=== PATIENT | female | born 1980 | race Two or more races ===

== ENCOUNTER 2020-12-07 14:52 | Outpatient (REF) | payer OTHER, SELFPAY ==
--- NOTE | ~2020-12-07 | US_ITS ---
EXAMINATION: US ABDOMEN LIMITED CLINICAL INFORMATION: Painful lumps in abdomen following liposuction, evaluate for fluid/necrosis. COMPARISON: Ultrasound abdomen complete dated 07/23/2017. CT abdomen and pelvis without contrast dated 01/28/2017. TECHNIQUE: Real-time imaging of the left lower quadrant. FINDINGS: Limited imaging through the abdominal wall reveals no visible mass or fluid collection. There are several hypoechoic areas through the left upper quadrant which correspond to the palpable lesions, likely scar or old hematoma/seroma. US/US abdomen limited IMPRESSION: Several subtle hypoechoic areas seen through the left lower quadrant and are palpable most likely are scar or an old seroma.
== END 2020-12-07 14:53 | disposition home or self-care (01) ==
LOC: HO.US 14:52
PROVIDERS: PCP Internal Medicine; Visit Provider Internal Medicine
DX: L76.82 Other postprocedural complications of skin and subcutaneous tissue (principal); R71.0 Precipitous drop in hematocrit
CPT/HCPCS: 76705

== ENCOUNTER 2022-04-10 15:36 | Outpatient (REF) | payer SELFPAY ==
--- NOTE | ~2022-04-10 | XR_ITS ---
EXAMINATION: XR WRIST, RIGHT CLINICAL INFORMATION: Pain in the right wrist COMPARISON: None TECHNIQUE: PA, lateral, and oblique views of the right wrist. FINDINGS: The bones and soft tissues are normal. No fracture. Alignment is anatomic with normal joint spaces. No erosions or abnormal soft tissue calcifications. XR/XR wrist RT min 3V IMPRESSION: Normal right wrist.
== END 2022-04-10 15:37 | disposition home or self-care (01) ==
LOC: HO.XRAY 15:36
PROVIDERS: Absent Provider Internal Medicine; PCP Internal Medicine; Visit Provider General Practice
DX: M25.531 Pain in right wrist (principal)
CPT/HCPCS: 73110

== ENCOUNTER 2022-11-23 10:08 | Outpatient (AMB) | payer OTHER, SELFPAY ==
--- NOTE | 2022-11-23 10:10 | A.OFFVIS_ITS ---
Intake Vital Signs 11/23/22 10:21 Weight 186 lb BP 138/78 Blood Pressure Location Rt brachial Position Sitting Pulse 79 Intake Visit Reasons: cellulitis and abscess thigh Intake Note: This patient presents for an assessment for cellulitis and abscess of thigh. Patient c/o; Onset 20 years, intermittent, abx trigger symptoms. Technical Service Specialist Required: No Accompanied by: Self / Same As Patient Allergies No Known Allergies Allergy (Unverified 11/23/22 10:11) Medication List - Last Reconciled 11/23/22 by Viktor Raymond MD cholecalciferol (vitamin D3) (Vitamin D3) 50 mcg PO DAILY HPI cellulitis and abscess thigh HPI Details 42-year-old female referred for a recurrent swelling on the left medial thigh. She says that she has had this for many years. She said this area would become swollen and tender on and off. She says that this would spontaneously resolve but would keep recurring. She denies any history of on insect bite or trauma to the area. REPLACED BY [facility] Medical History (Updated 11/23/22 @ 10:42 by Viktor Raymond MD) Epidermal cyst Surgical History History of surgery of uterus History of tubal ligation Family History Maternal Grandmother Breast cancer Social History Alcohol intake: never Patient Tobacco Use Status: Never used Tobacco Review of Systems Const Denies chills and Denies fever(s) Card Denies chest pain, Denies dyspnea and Denies dyspnea on exertion Resp Denies cough, Denies dyspnea and Denies dyspnea on exertion GI Denies hematochezia and Denies change in bowel habits Denies hematuria Musc Denies back pain and Denies limited range of motion Neuro Denies focal weakness and Denies convulsions Psych Denies depression and Denies mood swings Physical Exam Vital Signs: Last Vital Signs Pulse 79 11/23/22 10:21 BP 138/78 11/23/22 10:21 Const General: comfortable and no acute distress Orientation/consciousness: patient oriented x3 Neck Neck: Yes no lymphadenopathy Resp Auscultation: clear to auscultation bilaterally Cardio Rhythm: regular rhythm GI Palpation (GI): Soft to palpation, nontender and no guarding Neuro General: patient oriented x3 Extrem Other: Left medial thigh with cystic induration, about 3 x 2 cm. This is nonfluctuant, this is dry without any drainage Assessment & Plan Assessment & Plan (1) Epidermal cyst: Code(s): L72.0 - Epidermal cyst Plan: This appears to be an epidermal cyst on the left medial thigh. She has had recurrent swelling and pain. She wants this excised. I explained the technique of excision under local anesthesia. I reviewed the risks including but not limited to bleeding, infections and poor healing, as well as the benefits and alternatives. She understands and wants to proceed. This will be done in the office under local anesthesia on her next visit. She understands what to expect postoperatively. Coding Level of Care Code New Pt Level 3 (70497) Diagnoses Epidermal cyst L72.0
[2022-11-23 10:21] VITALS: BP 138/78; PULSE 79
== END 2022-11-23 10:43 | disposition home or self-care (01) ==
PROVIDERS: PCP Internal Medicine; Visit Provider Surgery
DX: L72.0 Epidermal cyst (principal)
CPT/HCPCS: 99203

== ENCOUNTER → 2022-11-23 10:08 | Outpatient (BNVA) | payer BC, SELFPAY | PROVIDERS: PCP Internal Medicine; Visit Provider Surgery ==

== ENCOUNTER 2022-12-07 14:42 | Outpatient (AMB) | payer OTHER, SELFPAY ==
--- NOTE | 2022-12-07 14:44 | A.OFFVIS_ITS ---
Intake Vital Signs 12/07/22 14:53 BP 126/74 Blood Pressure Location Lt brachial Position Sitting Intake Visit Reasons: Excision of cyst left thigh Gallery Director Required: No Accompanied by: Spouse Allergies No Known Allergies Allergy (Unverified 12/07/22 14:44) HPI Excision of cyst left thigh HPI Details She is here for excision of recurrent area of swelling and pain on the left thigh [facility] Medical History (Updated 11/23/22 @ 10:42 by Viktor Raymond MD) Epidermal cyst Surgical History History of removal of cyst (~12/07/22) History of surgery of uterus History of tubal ligation Family History Maternal Grandmother Breast cancer Social History Alcohol intake: never Patient Tobacco Use Status: Never used Tobacco Office Procedures Excision Details: The area of cystic induration was prepped and draped. Lidocaine 1% was used for local anesthesia. I made an elliptical incision around this induration using a blade 15. And this was carried down sharply through the full-thickness of the skin and part of subcutaneous layer to excise this entire indurated diseased tissue. This entire area measured 5 cm by 2.5 cm. This was sent as specimen. I closed the incision with full-thickness nylon 3-0 interrupted sutures. Dressings were applied and the procedure was completed She tolerated procedure well. There were no immediate complications. Estimated blood loss was about 5 cc. She was given wound care instructions. 96559-kxzag/arms/legs 2.1-3cm 08028-mfrmj/arms/legs >4cm Procedure code (CPT) selection complete Assessment & Plan Assessment & Plan (1) Epidermal cyst: Code(s): L72.0 - Epidermal cyst Plan: Area of induration excised completely. She tolerated procedure well. She was given wound care instructions. She will see in the office in about 2 weeks for removal of sutures. Coding Level of Care Code Procedure Only Diagnoses Epidermal cyst L72.0 CPT Codes Trunk/Arms/Legs - CPT: 87047-dceek/arms/legs 2.1-3cm ([id number]) Trunk/Arms/Legs - CPT: 63673-reckb/arms/legs >4cm ([id number])
[2022-12-07 14:53] VITALS: BP 126/74
== END 2022-12-07 15:27 | disposition home or self-care (01) ==
PROVIDERS: PCP Internal Medicine; Visit Provider Surgery
DX: L72.0 Epidermal cyst (principal)
CPT/HCPCS: 11406

== ENCOUNTER 2022-12-07 14:42 | Outpatient (REF) | payer OTHER, SELFPAY | END 2022-12-07 14:43 | disposition home or self-care (01) | LOC: HO.LNP 14:42 | PROVIDERS: PCP Internal Medicine; Visit Provider Surgery | DX: L72.0 Epidermal cyst (principal) | CPT/HCPCS: 11406; 88304; 88305; 88312 ==

== ENCOUNTER 2022-12-18 15:39 | Outpatient (AMB) | payer BC, SELFPAY ==
--- NOTE | 2022-12-18 15:40 | A.OFFVIS_ITS ---
Intake Intake Visit Reasons: s/p excision of cyst left thigh Intake Note: This patient presents for a post-op assessment status post excision of cyst of the left thigh. Patient denies complaints at this time. Pressure Test Operator Required: Yes Pressure Test Operator Language: [place] Accompanied by: Self / Same As Patient Allergies No Known Allergies Allergy (Unverified 12/18/22 15:41) HPI s/p excision of cyst left thigh HPI Details She had undergone excision of what appeared to be a cyst from her left medial thigh last 12/07/2022. She tolerated procedure well. She denies significant complaints. ON LICENSE OF [facility] Medical History Epidermal cyst Surgical History History of removal of cyst (~12/07/22) History of surgery of uterus History of tubal ligation Family History Maternal Grandmother Breast cancer Social History Alcohol intake: never Patient Tobacco Use Status: Never used Tobacco Review of Systems Const Denies chills and Denies fever(s) Card Denies chest pain, Denies dyspnea and Denies dyspnea on exertion Resp Denies cough, Denies dyspnea and Denies dyspnea on exertion GI Denies hematochezia and Denies change in bowel habits Denies hematuria Musc Denies back pain and Denies limited range of motion Neuro Denies focal weakness and Denies convulsions Psych Denies depression and Denies mood swings Physical Exam Const General: comfortable and no acute distress Resp Effort & Inspection: normal respiratory effort Extrem Other: Excision site on the left medial thigh is well healed, not infected, sutures intact Assessment & Plan Assessment & Plan (1) Epidermal cyst: Code(s): L72.0 - Epidermal cyst Plan: Status post excision. Her path report shows benign skin with acanthosis, mild spongiosis and perivascular chronic dermal inflammation. I removed all her sutures. The wound edges remained well apposed. I assured her about the benign nature of the pathology. She can follow up on a p.r.n. basis. Coding Level of Care Code Global (37967) Diagnoses Epidermal cyst L72.0
== END 2022-12-18 16:07 | disposition home or self-care (01) ==
PROVIDERS: PCP Internal Medicine; Visit Provider Surgery
DX: L72.0 Epidermal cyst (principal)
CPT/HCPCS: 99024

== ENCOUNTER → 2022-12-18 15:39 | Outpatient (BNVA) | payer BC, SELFPAY | PROVIDERS: PCP Internal Medicine; Visit Provider Surgery ==

== ENCOUNTER 2023-01-23 18:06 | Outpatient (REF) | payer OTHER, SELFPAY ==
[2023-01-24 05:55] LABS: CT PCR NOT DETECTED (Not Detect.); NG PCR NOT DETECTED (Not Detect.)
[2023-01-24 15:13] LABS: BV Int Neg Control Negative (Negative); BV Int Pos Control Positive (Positive)
== END 2023-01-23 18:07 | disposition home or self-care (01) ==
LOC: HO.HHCLNP 18:06
PROVIDERS: Visit Provider Student in an Organized Health Care Education/Training Program
DX: N89.8 Other specified noninflammatory disorders of vagina (principal); Z20.2 Contact with and (suspected) exposure to infections with a predominantly sexual mode of transmission
CPT/HCPCS: 0353U; 87480; 87510; 87660

== ENCOUNTER 2023-05-16 11:48 | Outpatient (REF) | payer OTHER, SELFPAY | END 2023-05-16 11:49 | disposition home or self-care (01) | LOC: HO.HHCL 11:48 | PROVIDERS: Visit Provider Family Medicine | DX: R10.2 Pelvic and perineal pain (principal) | CPT/HCPCS: 36415; 80048; 81001; 84702; 85025; 87491; 87591 ==

== ENCOUNTER 2023-05-24 | Outpatient (REF) | payer OTHER, SELFPAY ==
[2023-05-25 11:47] LABS: BV Int Neg Control Negative (Negative); BV Int Pos Control Positive (Positive)
[2023-05-29 04:44] LABS: HPV mRNA E6/E7 rflx Not Detected (Not Detected)
== END 2023-05-24 00:01 ==
LOC: HO.HHCLNP
PROVIDERS: Visit Provider Advanced Practice Midwife
DX: Z12.4 Encounter for screening for malignant neoplasm of cervix (principal); Z11.51 Encounter for screening for human papillomavirus (HPV); N89.8 Other specified noninflammatory disorders of vagina
CPT/HCPCS: 87480; 87510; 87624; 87660; 88142

== ENCOUNTER 2023-05-28 12:55 | Outpatient (REF) | payer OTHER, SELFPAY ==
--- NOTE | ~2023-05-28 | MM_ITS ---
EXAMINATION: MM SCREENING DIGITAL BREAST TOMOSYNTHESIS, BILATERAL CLINICAL INFORMATION: Screening. Asymptomatic. COMPARISON: Mammography: This study is compared with prior exams dating back to this is a baseline mammogram. TECHNIQUE: Digital breast tomosynthesis is performed in both the craniocaudal and mediolateral oblique views along with computer-aided detection (CAD). Synthesized 2D images are generated from the tomosynthesis. FINDINGS: The breasts are heterogeneously dense, which may obscure small masses (ACR BI-RADS breast composition Category c). There are no significant masses, abnormal calcifications, or other abnormalities. MM/MM tomosynthesis screening BI IMPRESSION: No mammographic evidence of malignancy. ASSESSMENT: BI-RADS BI-RADS 1 - Negative RECOMMENDATION: Routine annual mammography screening. 1 year F/U This examination should not preclude the clinical evaluation of a suspicious palpable abnormality. This patient's information was entered into a reminder system with a target due date for their next mammogram.
== END 2023-05-28 12:56 | disposition home or self-care (01) ==
LOC: HO.MAMMO 12:55
PROVIDERS: PCP Internal Medicine; Visit Provider Advanced Practice Midwife
DX: Z12.31 Encounter for screening mammogram for malignant neoplasm of breast (principal)
CPT/HCPCS: 77063; 77067

== ENCOUNTER → 2023-05-28 13:00 | Outpatient (BNV) | payer OTHER, SELFPAY | PROVIDERS: PCP Internal Medicine; Visit Provider Radiology Diagnostic Radiology | DX: Z12.31 Encounter for screening mammogram for malignant neoplasm of breast (principal) | CPT/HCPCS: 77063; 77067 ==

== ENCOUNTER 2023-06-07 13:53 | Outpatient (REF) | payer OTHER, SELFPAY ==
--- NOTE | ~2023-06-07 | US_ITS ---
EXAMINATION: US PELVIS CLINICAL INFORMATION: Pelvic pain. COMPARISON: Pelvic ultrasound dated 10/11/2019. TECHNIQUE: Ultrasound of the pelvis is performed using both transabdominal and transvaginal transducers along with Doppler. Transvaginal imaging is performed due to inadequate visualization transabdominally. FINDINGS: The uterus is of normal size and echogenicity measuring 8.8 x 5.2 x 6.2 cm. The uterus is anteverted. A regular homogeneous endometrium is identified measuring 0.6 cm. FIBROIDS: There is 1 fibroid seen. 1. Location: Left fundus. Size: 5.3 x 5.6 x 5.3 cm. Prior: 3.2 x 2.2 x 3.0 Fibroid characteristics: Heterogeneously hypoechoic. Both ovaries are of normal size and echogenicity. The right ovary measures 4.8 x 2.9 x 2.3 cm, for a volume of 16.8 mL. The right ovary contains a 2.1 cm benign, simple dominant follicle, for which no imaging follow-up is recommended. The left ovary measures 3.6 x 2.3 x 1.8 cm, for a volume of 7.8 mL. The left ovary contains a 1.6 cm benign, simple dominant follicle, for which no imaging follow-up is recommended. There is a small amount of free fluid in the cul-de-sac. A left hydrosalpinx is suspected. US/US pelvic and transvaginal IMPRESSION: 1. An increased left fundal fibroid is seen. 2. A left hydrosalpinx is suspected. This could be more fully evaluated with pelvic MRI, if clinically indicated. 3. There is a small amount nonspecific free fluid in the cul-de-sac.
== END 2023-06-07 13:54 | disposition home or self-care (01) ==
LOC: HO.US 13:53
PROVIDERS: PCP Internal Medicine; Visit Provider Family Medicine
DX: R10.2 Pelvic and perineal pain (principal)
CPT/HCPCS: 76830; 76856

== ENCOUNTER 2023-07-17 11:48 | Outpatient (AMB) | payer OTHER, SELFPAY ==
--- NOTE | 2023-07-17 11:52 | A.OFFVIS_ITS ---
Intake Vital Signs 07/17/23 11:55 Height 5 ft 3 in Weight 183 lb BMI 32.4 BP 126/84 Intake Visit Reasons: uterine leiomyoma/PCP referral/DO NOT RS Sales And Leasing Consultant Required: No Information Interpreted: non-clinical & clinical Splitter Head: Splitter Head Present (Yareli ABDI) Accompanied by: Self / Same As Patient Allergies No Known Allergies Allergy (Unverified 07/17/23 11:57) Is last menstrual period known: Yes Last menstrual period: 07/17/23 HPI HPI Comments History of Present Illness Details The patient is referred from PCP regarding uterine myomas. The patient had an endometrial ablation few years ago and since then it has been having dysmenorrhea with light menstrual cycles, no other associated symptoms no pelvic pain in between her menstrual cycle. The following workup was done in 06/06: H&H 14.2/41.9 Co testing negative Mammogram BI-RADS 1 Pelvic ultrasound showed the following: The uterus is of normal size and echogenicity measuring 8.8 x 5.2 x 6.2 cm. The uterus is anteverted. A regular homogeneous endometrium is identified measuring 0.6 cm. FIBROIDS: There is 1 fibroid seen. 1. Location: Left fundus. Size: 5.3 x 5.6 x 5.3 cm. Prior: 3.2 x 2.2 x 3.0 Fibroid characteristics: Heterogeneously hypoechoic. Both ovaries are of normal size and echogenicity. The right ovary measures 4.8 x 2.9 x 2.3 cm, for a volume of 16.8 mL. The right ovary contains a 2.1 cm benign, simple dominant follicle, for which no imaging follow-up is recommended. The left ovary measures 3.6 x 2.3 x 1.8 cm, for a volume of 7.8 mL. The left ovary contains a 1.6 cm benign, simple dominant follicle, for which no imaging follow-up is recommended. There is a small amount of free fluid in the cul-de-sac. A left hydrosalpinx is suspected PFSH Medical History Epidermal cyst Surgical History History of removal of cyst (~12/07/22) History of surgery of uterus History of tubal ligation Family History Maternal Grandmother Breast cancer Social History Household Members: Spouse and Children Housing: House Alcohol intake: never Patient Tobacco Use Status: Never used Tobacco Current occupational status: employed Current occupation: Therapist Sexual orientation: Straight/Heterosexual Gender identity: Female Female Reproductive History Menstrual Age of Menarche: 15 Duration of menses: 3-5 days Date of last menstrual period: 07/17/23 control method: permanent sterilization Total pregnancies: 2 Full term: 2 Number of Living Children: 2 Date of last pap smear: 05/25/23 Date of Mammogram: 05/28/23 Review of Systems Const All systems reviewed & are unremarkable except as noted in HPI and below Physical Exam Vital Signs: BMI result Body Mass Index 32.4 General: Yes no CVA tenderness External Female Exam: normal external appearance and normal appearance of the urethra Speculum Exam - Vagina: normal appearance of the vagina, normal palpation, no lesions and no masses Speculum Exam - Cervix: normal appearance of the cervix, normal palpation, no lesions, no masses and nontender Bimanual exam- vagina & uterus: normal bimanual exam, normal palpation, normal palpation, uterine shape normal, No Cervical tenderness present, non-tender and enlarged Bimanual Exam- Adnexa, other: normal adnexae Back/Spine/Pelvis Back: no CVA tenderness Assessment & Plan Assessment & Plan (1) Uterine myoma: Code(s): D25.9 - Leiomyoma of uterus, unspecified Plan: Discussed with the patient the findings on pelvic ultrasound & the risk of myosarcoma; discussed with the patient the options of treatment including expectant management versus hysterectomy; the pros and cons, risks benefits of each approach were discussed with the patient including the fact that in cases of myosarcoma, surgical treatment can lead to early diagnosis and positively affects the prognosis; after further discussion, the patient decided to proceed with expectant management. Will repeat pelvic ultrasound in 6 months. Instructions given to patient to call in case any of the following occurs: pressure symptoms, abnormal uterine bleeding, pelvic pain; and to schedule a six-month follow-up appointment . All questions answered, the patient verbalized understanding and agreed with the plan . 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 Instructions given the patient to call in case of fever above 100.4, worsening of her pelvic pain outside her menstrual cycle according other concerns. All questions answered, the patient verbalized understanding Orders: Orders US pelvic and transvaginal 6 Months D25.9 - Leiomyoma of uterus, unspecified Coding Level of Care Code Est Pt Level 3 (63579) Diagnoses Uterine myoma D25.9 Hydrosalpinx N70.11
[2023-07-17 11:55] VITALS: BP 126/84; BMI 32.4
== END 2023-07-17 12:22 | disposition home or self-care (01) ==
LOC: HO.HWS 11:49
PROVIDERS: PCP Internal Medicine; Visit Provider Obstetrics & Gynecology
DX: D25.9 Leiomyoma of uterus, unspecified (principal); N70.11 Chronic salpingitis
CPT/HCPCS: 99213

== ENCOUNTER → 2023-07-17 11:48 | Outpatient (BNVA) | payer OTHER, SELFPAY | PROVIDERS: PCP Internal Medicine; Visit Provider Obstetrics & Gynecology ==

== ENCOUNTER 2024-01-17 13:04 | Outpatient (REF) | payer OTHER, SELFPAY ==
--- NOTE | ~2024-01-17 | US_ITS ---
EXAMINATION: US PELVIS CLINICAL INFORMATION: Uterine fibroids COMPARISON: Pelvis ultrasound June 07, 2023 TECHNIQUE: Ultrasound of the pelvis is performed using both transabdominal and transvaginal transducers along with Doppler. Transvaginal imaging is performed due to inadequate visualization transabdominally. FINDINGS: Uterus: The uterus is anteverted and measures 9.1 x 4.5 x 6.3 cm. Fundal uterine fibroid measuring 6.3 x 5.6 x 4.7 cm, previously 5.3 x 5.6 x 5.3 cm. Adnexa: Both ovaries are visualized. There is normal color flow to the adnexa. There is no ovarian torsion. There is no pelvic ascites or fluid collection. Right ovary measures 4.5 x 2.7 x 3.3 cm. Volume is 21 mL. Dominant follicle noted. Left ovary measures 2.8 x 1.7 x 2.6 cm. Volume is 6.5 mL. Incidental calcifications noted. Cyst noted adjacent to the left adnexa measuring 2.4 x 2.3 x 2.2 cm, almost certainly benign. US/US pelvic and transvaginal IMPRESSION: Fundal uterine fibroid measuring 6.3 x 5.6 x 4.7 cm, previously 5.3 x 5.6 x 5.3 cm. Electronically signed by: Fran Bolton MD 01/24/2024 11:10 AM EDT
== END 2024-01-17 13:05 | disposition home or self-care (01) ==
LOC: HO.US 13:04
PROVIDERS: PCP Internal Medicine; Visit Provider Obstetrics & Gynecology
DX: D25.9 Leiomyoma of uterus, unspecified (principal)
CPT/HCPCS: 76830; 76856

== ENCOUNTER 2024-01-21 12:33 | Outpatient (REF) | payer OTHER, SELFPAY ==
[2024-01-22 15:22] LABS: Bacterial Vaginosis PCR NEGATIVE (Negative); Candida Group PCR DETECTED (Not Detect); Candida glab krusei PCR NOT DETECTED (Not Detect); Trichomonas vaginalis PCR NOT DETECTED (Not Detect)
== END 2024-01-21 12:34 | disposition home or self-care (01) ==
LOC: HO.HHCLNP 12:33
PROVIDERS: Visit Provider Internal Medicine
DX: N30.00 Acute cystitis without hematuria (principal)
CPT/HCPCS: 0352U; 87086

== ENCOUNTER 2024-01-29 14:00 | Outpatient (AMB) | payer OTHER, SELFPAY ==
--- NOTE | 2024-01-29 14:02 | MHC.OFFVIS ---
Vital Signs 01/29/24 14:07 Height 5 ft 3 in Weight 182 lb 15.739 oz BMI 32.4 Intake Visit Reasons: US follow up Allergies No Known Allergies Allergy (Unverified 07/17/23 11:57) HPI Comments Details: Presenting for ultrasound follow-up regarding uterine myomas. Pelvic ultrasound done recently showed the following: Uterus: The uterus is anteverted and measures 9.1 x 4.5 x 6.3 cm. Fundal uterine fibroid measuring 6.3 x 5.6 x 4.7 cm, previously 5.3 x 5.6 x 5.3 cm. Adnexa: Both ovaries are visualized. There is normal color flow to the adnexa. There is no ovarian torsion. There is no pelvic ascites or fluid collection. Right ovary measures 4.5 x 2.7 x 3.3 cm. Volume is 21 mL. Dominant follicle noted. Left ovary measures 2.8 x 1.7 x 2.6 cm. Volume is 6.5 mL. Incidental calcifications noted. Cyst noted adjacent to the left adnexa measuring 2.4 x 2.3 x 2.2 cm, almost certainly benign. [facility] Medical History Epidermal cyst Surgical History History of removal of cyst (~12/07/22) History of surgery of uterus History of tubal ligation Family History Maternal Grandmother Breast cancer Social History Household Members: Spouse and Children Housing: House Alcohol intake: never Patient Tobacco Use Status: Never used Tobacco Current occupational status: employed Current occupation: Therapist Sexual orientation: Straight/Heterosexual Gender identity: Female Female Reproductive History Menstrual Age of Menarche: 15 Review of Systems Const All systems reviewed & are unremarkable except as noted in HPI and below Reports as per HPI and Reports no additional complaints GI Reports no additional complaints Reports no additional complaints Physical Exam Vital Signs: BMI result Body Mass Index 32.4 Assessment & Plan Assessment & Plan (1) Uterine myoma: Code(s): D25.9 - Leiomyoma of uterus, unspecified Category: Medical Plan: Discussed with the patient the results of the ultrasound and the size of the myomas. Discussed with the patient risk of myosarcoma and symptoms that are caused by myomas including but not limited to pelvic pain, pressure symptoms, abnormal uterine bleeding. In addition discussed with the patient options of treatment for myomas including: Serial ultrasounds periodically to follow-up on the size of the myoma uterine artery embolization or endometrial ablation or surgical treatment including hysterectomy . All pros and cons, risks and benefits of all options were discussed with the patient. The patient understands that delay in surgical treatment in case of myosarcoma can affect her prognosis, after further discussion, the patient decided to proceed with surgical management. Discussed with the patient the different types of hysterectomies including, vaginal, laparoscopic assisted vaginal, robotic assisted laparoscopic,& abdominal with BSO. All pros, cons, r/b of each approach were discussed the patient including evidence that morbidity is less and recovery is shorter with minimally invasive approaches to hysterectomy. Discussed with the patient the lack of availability of the robot DaVinci robot and/or minimally invasive cdl dedicated truck driver specialist at [facility]. Will refer the patient to a tertiary care center at [facility] for minimally invasive hysterectomy. Instructed the patient to call our office back in case a referral appointment is not scheduled, missed or canceled so that we will assist on rescheduling another appointment, the patient verbalized understanding agreed with the plan. This note was generated with a voice recognition program. Some errors may have been overlooked during the review of this note. Sometimes these errors may affect the content or meaning of a given sentence. Coding Level of Care Code Est Pt Level 3 (43898) Diagnoses Uterine myoma D25.9
[2024-01-29 14:07] VITALS: BMI 32.4
== END 2024-01-29 14:27 | disposition home or self-care (01) ==
LOC: HO.HWS 14:00
PROVIDERS: PCP Internal Medicine; Visit Provider Obstetrics & Gynecology
DX: D25.9 Leiomyoma of uterus, unspecified (principal)
CPT/HCPCS: 99213

== ENCOUNTER → 2024-01-29 14:00 | Outpatient (BNVA) | payer OTHER, SELFPAY | PROVIDERS: PCP Internal Medicine; Visit Provider Obstetrics & Gynecology ==

== ENCOUNTER 2024-02-06 18:29 | Outpatient (REF) | payer OTHER, SELFPAY | END 2024-02-06 18:30 | disposition home or self-care (01) | LOC: HO.HHCLNP 18:29 | PROVIDERS: Visit Provider Nurse Practitioner Family | DX: L03.116 Cellulitis of left lower limb (principal) | CPT/HCPCS: 87070; 87205; 87255 ==

== ENCOUNTER → 2024-06-02 13:00 | Outpatient (BNV) | payer OTHER, SELFPAY | PROVIDERS: PCP Internal Medicine; Visit Provider Internal Medicine | DX: Z12.31 Encounter for screening mammogram for malignant neoplasm of breast (principal) | CPT/HCPCS: 77063; 77067 ==

== ENCOUNTER 2024-06-02 13:08 | Outpatient (REF) | payer OTHER, SELFPAY | END 2024-06-02 13:09 | disposition home or self-care (01) | LOC: HO.MAMMO 13:08 | PROVIDERS: PCP Internal Medicine; Visit Provider Internal Medicine | DX: Z12.31 Encounter for screening mammogram for malignant neoplasm of breast (principal) | CPT/HCPCS: 77063; 77067 ==

== ENCOUNTER 2024-08-20 14:40 | Outpatient (REF) | payer OTHER, SELFPAY ==
[2024-08-20 16:34] LABS: Alanine Aminotransferase 15 U/L (0-31); Albumin Level 3.7 g/dL (3.5-5.0); Aspartate Amino Transferase 17 U/L (5-31); Bilirubin Direct 0.2 mg/dL (0.0-0.5); Bilirubin Total 0.9 mg/dL (0.0-1.0); Total Protein 6.4 g/dL (6.5-8.0)
[2024-08-20 16:48] LABS: Alkaline Phosphatase 74 U/L (39-117)
--- OUTSIDE RECORDS SUMMARY | 2024-08-20 16:54 | XMS_ITS | Clinical Summary ---
Author Organization [employer] Address [address] [place] [address] 7t [place] [address] Care Team Providers Care Drum Printer Name Role Phone Cydney Coy MD Primary Care Provide r Allergies No known active allergies Medications hydrocortisone 1 % cream APPLY TO THE AFFECTED AREA(S) EVERY DAY 12/08/19 22 Active lidocaine (Xylocaine) 2 % solution Mix 80 mL of maalox with 80 mL of diphenhydramine and 80 mL of lidocaine 2% cornelius and take 1 mL of mixture by mouth 4 times daily, Swish and spit. Apply sm amt of lidocaine topically to oral ulcers 4x a day prn 100 mL 11/08/19 23 Active Additional Information Patient not taking.Reported on 05/16/2023 diphenhydrAMINE (BENADryl) 12.5 MG/5ML elixir Mix 80 mL of benadryl with 80 mL of maalox and 80 mL of lidocaine 2% solution and take 1 mL of mixture by mouth 4 times daily as needed for pain, Swish and spit 80 mL 11/08/19 23 Active Additional Information Patient not taking.Reported on 05/16/2023 cholecalciferol (Vitamin D-3) 50 MCG (1999 UT) capsuleIndicatio ns:Vitamin D deficiency Take 1 capsule by oral route once daily 30 capsule 11 11/16/19 23 Active Additional Information Patient not taking.Reported on 05/16/2023 diclofenac (Cataflam) 50 MG tabletIndication s:Pelvic pain Take 1 tablet (50 mg) by mouth 3 times daily. 90 tablet 05/16/19 24 Active Additional Information Patient not taking.Reported on 02/06/2024 estradiol (Estrace) 0.1 MG/GM vaginal cream Insert 1 g into the vagina in the morning. 1g vaginally x 14d, then twice weekly thereafter 45 g 2 05/25/19 Active Additional Information Patient not taking.Reported on 02/06/2024 Blood Pressure Monitoring (Blood Pressure Cuff) miscIndications: Primary hypertension 1 each Once daily. 1 each 06/21/19 Active Additional Information Patient not taking.Reported on 02/06/2024 amLODIPine (Norvasc) 10 MG tabletIndication s:Primary hypertension Take 1 tablet (10 mg) by mouth in the morning. 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 Initial goal of 30 min walk 3-5x/week. Increase as tolerated. - low-sodium diet (goal: <2g/day) and heart healthy diet such as DASH to reduce BP and prevent ASCVD. - Home BP monitoring 1-2 x day with goal of <140/90. - Seek immediate medical attention for chest pain, palpitations, SOB, syncope, or sudden changes in mental status. - Do not change or discontinue current prescriptions without first consulting health care provider Elevated blood pressure reading 05/16/2023 Assessment & Plan (05/16/2023 11:51 AM EST): In the setting of pelvic pain, at this moment recommended f/up with PCP Avulsion of toenail 04/29/2018 Eczema 01/25/2018 Cellulitis of lower limb 12/25/2017 Assessment & Plan (03/02/2024 5:38 PM EDT): Reoccuring infection, unclear etiology Culture sent, rx for cellulitis, Return to clinic for worsening or failure to improve Pelvic pain 12/20/2017 Assessment & Plan (05/16/2023 11:51 AM EST): Acute on chronic, ddx pelvic congestion, ovarian cysts, vs other. Will send labs and US, she requested f/up with CNM, scheduled appt and referral placed. Recommended f/up with PCP for chronic issues. Irritable bowel syndrome 11/19/2012 Encounters Date Type Department Care Team Description 08/20/2024 Orders Only GENERIC EXTERNAL DATA DEPARTMENT Provider, Generic External Data 06/02/2024 Orders Only [facility] [address] [place] [phone] Cydney Coy MD 05/30/2024 3:40 PM EST Office Visit [facility] [address] [place] [phone] Rosaura Barakat NP Onychomycosis of great toe (Primary Dx); Elevated blood pressure reading 05/30/2024 Travel 05/30/2024 Telephone [facility] [address] [place] [address] Cydney Coy MD 05/28/2024 Telephone [facility] [address] [place] [phone] Cydney Coy MD Nurse Triage from Last 3 Months Immunizations Name Administration Dates Next Due Hep B, adult 03/02/2010 Influenza, IIV3, injectable 06/21/2011 Influenza, Split (incl. purified surface antigen ) 02/18/2013,01/23/2012 TD (adult), 2 Lf tetanus tox oid, preservative free, adsorbed 06/04/2007 Tdap 12/18/2014 Family History Medical History Relation Name Comments Breast cancer Maternal Cousin Breast cancer Maternal Grandmother Breast cancer Mother's Sister Uterine cancer Sister Relation Name Status Comments Maternal Cousin Maternal Grandmother Mother's Sister Sister Social History Tobacco Use Types Packs/Day Years Used Date Smoking Tobacco: Never Smokeless Tobacco: Never Tobacco Cessation:Counseling Given: Not Answered Alcohol Use Standard Drinks/Week Comments Never 0 (1 standard drink = 0.6 oz pur e alcohol) Depression Answer Date Recorded Patient Health Questionnaire-9 Score 0 11/01/2022 Housing Stability Answer Date Recorded What is your housing situation today? I have ian maloney 03/19/[address] you li ve. Do you have problems with any of the following? None of the above 03/19/2023 Food Insecurity Answer Date Recorded Within the past 12 months, y ou worried that your food would run out before you got money to buy more: Never True 03/19/2023 Within the past 12 months,th e food you bought just didn't last and you didn't have enough money to get more: Never True 10/2022 Transportation Answer Date Recorded In the past 12 months, has l ack of transportation kept you from medical appts, meetings, work or from getting things needed for daily living? No 09/12/2023 Utilities Answer Date Recorded In the past 12 months, has t he electric, gas, oil or water company threatened to shut off services in your home? No 03/19/2023 Depression Answer Date Recorded Patient Health Questionnaire-2 Score 0 11/01/2022 Comments No Sex and Gender Information Value Date Recorded Sex Assigned at Female 03/13/2022 10:19 AM EDT Legal Sex Female 10:19 AM EDT Gender Identity Female 03/13/2022 10:19 AM EDT Sexual Orientation Straight 03/13/2022 10 :19 AM EDT Last Filed Vital Signs Vital Sign Reading Time Taken Comments Blood Pressure 144/89 05/30/2024 3:41 PM EST Pulse 79 05/30/2024 3:41 PM EST Temperature 36.6 ??C (97.9 ??F) 05/30/2024 3:41 PM ES T Respiratory Rate 16 05/30/2024 3:41 PM EST Oxygen Saturation 100% 05/30/2024 3:41 PM EST Inhaled Oxygen Concentration - - Weight 79.8 kg (176 lb) 05/30/2024 3:41 PM EST Height 160 cm (5' 3 ) 02/06/2024 11:28 AM EDT Body Mass Index 31.18 02/06/2024 11:28 AM EDT Plan of Treatment Health Maintenance Due Date Last Done Comments Alcohol/Substance Use Screening 1992 Family Planning (PISQ) 09/17/1995 Hepatitis B Vaccines (2 of 3 - 19+ 3-dose series) 03/30/2010 03/02/2010 Depression Screening 11/02/2023 11/01/2022, 11/01/2022 COVID-19 Vaccine (3 - 2023-2 5 season) 2024 01/21/2021, 12/24/2020 Influenza Vaccine (#1) 2024 3, 01/23/2012, 06/21/2011 SDOH Screening 09/11/2024 09/12/2023 DTaP/Tdap/Td Vaccines (2 - T d or Tdap) 12/18/2024 12/18/2014, 06/04/2007 Tobacco Screening 02/05/2025 02/06/2024 Mammogram 06/02/2025 06/02/2024, 05/28/2023 Lipid Panel 11/08/2027 11/07/2022 Cervical Cancer Screening 05/24/2028 HPV/Cotest 05/24/2028 05/24/2023 Pap Smear 05/24/2028 05/24/2023 Zoster Vaccines (1 of 2) 2030 RSV Patients and Patients Aged 60 years or older (1 - 1-dose 75+ series) 09/17/2055 HIV Screening Completed 11/07/2022, 07/14/2020 Hepatitis C Screening Completed 11/07/2022 HIB Vaccines Aged Out No longer eligi ble based on patient's age to complete this topic HPV Vaccines Aged Out No longer eligi ble based on patient's age to complete this topic Hepatitis A Vaccines Aged Out No long er eligible based on patient's age to complete this topic IPV Vaccines Aged Out No longer eligi ble based on patient's age to complete this topic Meningococcal Vaccine Aged Out No linda stephon eligible based on patient's age to complete this topic Pneumococcal Vaccine: Pediatrics (0 to 5 Years) and At-Risk Patients (6 to 49) Years) Aged Out No longer eligible b ased on patient's age to complete this topic RSV under 20 months Aged Out No longe r eligible based on patient's age to complete this topic Rotavirus Vaccines Aged Out No longer eligible based on patient's age to complete this topic Procedures Procedure Name Priority Date/Time Associated Diagnosis Comments HEPATIC FUNCTION PANEL Routine 2:47 PM EDT BI MAMMOGRAM SCREENING TOMOSYNTHESIS BILATERAL Routine 06/02/2024 1:12 PM EST HPV MRNA E6/E7 REFLEX TO HPV 16, 18/45 Routine 05/24/2023 9:53 AM EST PAP SMEAR Routine 05/24/2023 9:53 AM EST Cervical cancer screening HEPATITIS C AB W/RFL RNA, PCR W/RFL GENOTYPE,LIPA Routine 11/07/2022 12:06 PM EDT Thrush HIV 1/2 ANTIGEN/ANTIBODY, FOURTH GENERATION W/RFL Routine 11/07/2022 12:06 PM EDT Thrush LIPID PANEL, STANDARD Routine 11/07/2022 12:06 PM EDT Thrush from Last 3 Months or Most Recently Relevant to Health Maintenance Results * (ABNORMAL) Hepatic Function Panel (08/20/2024 2:47 PM EDT) Bilirubin, Total 0.9 0.0 - 1.0 mg/dL [facility] Bilirubin, Direct 0.2 0.0 - 0.5 mg/dL [facility] Aspartate Amino Transferase 17 5 - 31 U/L [facility] Alanine Aminotransferase 15 0 - 31 U/L [facility] Total Protein 6.4(L) 6.5 - 8.0 g/dL [facility] Albumin Level 3.7 3.5 - 5.0 g/dL [facility] Alkaline Phosphatase 74 39 - 117 U/L [facility] 08/20/2024 2:47 PM EDT 08/20/2024 2:47 PM EDT us Generic External Data Provider LAB BLOOD ORDERAB LES Final Result [facility] [address] [place] [address] [phone] * BI Mammogram Screening Tomosynthesis Bilateral (06/02/2024 1:12 PM EST) Anatomical Region Laterality Modality Breast Bilateral Mammography 06/02/2024 1:12 PM EST Narrative 06/10/2024 12:06 PM EST ? [facility] ? [address] ?[place] [address] ? Mammography Report ? Signed ? Patient: Nancy Hernandez ?MR#: MM ?? [id number] ? : 1980 ?Acct:[id number] ? Age/Sex: 43 / F ?ADM Date: 06/02/ ? Loc: HO.MAMMO ? Attending Dr: Cydney Yusuf MD ? Ordering Physician: Cydney Coy MD ?Results: ?? 1Negative ? Date of Service: 06/02/ ?Follow Up: 1 Year From Orig ?? inal Mammogram ? Procedure(s): MM tomosynthesis screening BI ?? Accession Number(s): [id number] ? cc: Cydney Coy MD ? EXAMINATION: ?? MM SCREENING DIGITAL BREAST TOMOSYNTHESIS, BILATERAL ? CLINICAL INFORMATION: ? Screening. Asymptomatic. ? COMPARISON: ?? Mammography: Comparison is made with available priors ? TECHNIQUE: ?? Digital breast mammography with tomosynthesis is performed in both the ?? craniocaudal and mediolateral oblique views along with computer-aided ?? detection (CAD). ? FINDINGS: ?? The breasts are heterogeneously dense, which may obscure small masses ?? (ACR BI-RADS breast composition Category c). ? There are no significant masses, abnormal calcifications, or other ?? abnormalities. ? MM/MM tomosynthesis screening BI ?? IMPRESSION: ?? No mammographic evidence of malignancy. ? ASSESSMENT: ? BI-RADS BI-RADS 1 - Negative ? RECOMMENDATION: ?? Routine annual mammography screening. ? 1 year F/U ? This examination should not preclude the clinical evaluation of a ?? suspicious palpable abnormality. ? This patient's information was entered into a reminder system with a ?? target due date for their next mammogram. ? Electronically signed by: ??Claudia Gimenez DO ??06/10/2024 12:03 PM EST ? Dictated By: ?Claudia Gimenez DO ? Signed By: ?<Electronically signed by Claudia Gimenez, DO in OV> ? 06/10/24 1203 ? DD/ 1312 ? TD/TT: 06/02/24 1326 ? Distribution Field Technician: ? Procedure Note Loly, Jesus - 06/10/2024 [facility] [address] [place] [address] Mammography Report Signed Patient: Ronal Hernandez#: [id number] : 1980Acct:[id number] Age/Sex: 43 / FADM Date: 06/02/24 Loc: HO.MAMMO Attending Dr: Cydney Yusuf MD Ordering Physician: Cydney Coy MDResults: 1Negative Date of Service: 06/02/24Follow Up: 1 Year From Orig inal Mammogram Procedure(s): MM tomosynthesis screening BI Accession Number(s): [id number] cc: Cydney Coy MD EXAMINATION: MM SCREENING DIGITAL BREAST TOMOSYNTHESIS, BILATERAL CLINICAL INFORMATION: Screening. Asymptomatic. COMPARISON: Mammography: Comparison is made with available priors TECHNIQUE: Digital breast mammography with tomosynthesis is performed in both the craniocaudal and mediolateral oblique views along with computer-aided detection (CAD). FINDINGS: The breasts are heterogeneously dense, which may obscure small masses (ACR BI-RADS breast composition Category c). There are no significant masses, abnormal calcifications, or other abnormalities. MM/MM tomosynthesis screening BI IMPRESSION: No mammographic evidence of malignancy. ASSESSMENT: BI-RADS BI-RADS 1 - Negative RECOMMENDATION: Routine annual mammography screening. 1 year F/U This examination should not preclude the clinical evaluation of a suspicious palpable abnormality. This patient's information was entered into a reminder system with a target due date for their next mammogram. Electronically signed by: Claudia Gimenez DO 06/10/2024 12:03 PM EST RP Dictated By: Claudia Gimenez DO Signed By: <Electronically signed by Claudia Gimenez DO in OV> 06/10/24 1203 DD/ 1312 TD/TT: 06/02/24 1326 Distribution Field Technician: Cydney Yusuf MD IMG BI PROCEDURES Fin al Result * HPV mRNA E6/E7 w/Reflex to HPV Genotypes 16, 18/45 (05/24/2023 9:53 AM EST) HPV nRNA E6/E7 Not Detected Not Detected [facility] Comment:Methodology: Transcr iption-Mediated AmplificationThis assay detects E6/E7 viral messenger RNA (mRNA) from 14high-risk HPV types (16,18,31,33,35,39,45,51,52,56,58,59,66,68).Cervical sources are required for HPV testing.If a vaginal source from a patient who has had atotal hysterectomy with removal of cervix wassubmitted, please contact the testing laboratoryfor alternative testing options.For additional information, please refer tohttp://education.CareParent/faq/OLC730e3(This link if provided for information/educational purposes only.)THIS TEST WAS PERFORMED AT:[facility] [place] [phone] TSANG MD HPV mRNA E6/E7 TNP [facility] HPV 16 RNA TNP [facility] HPV 18/45 RNA TNP [facility] 05/24/2023 9:53 AM EST 05/25/2023 11:20 AM EST Shirley Kingsley [facility] CYTOLOGY ORDERABLES F inal Result [facility] [address] [place] [phone] * Pap Smear (05/24/2023 9:53 AM EST) Swab Cervix uteri structure / Unknown 05/24/2023 9:53 AM EST 05/25/2023 11:20 AM EST Narrative [facility] - 06/04/2023 11:19 AM EST ----- ------- Name: Nancy Hernandez ? Age/Sex: 42/F ? : 1980 Unit#: [id number] ?? Attend Dr: ?Re05/24/23 ?Status: PRE REF ? Location: HO.LNP ?Disch: ? ----- ------- SPEC : [id number] ?RECD: 05/25/23 ? STATUS: ??SOUT ? REQ NUM: [id number] ? ALEJANDRA: 05/24/23 ? SUBM DR: SHIRLEY KINGSLEY CNM ? ENTERED: ??05/25/23 ?SP TYPE: Pap Smr ?OTHR : ? ORDERED: ??Pap Smear ? Interpretation ?? Satisfactory for evaluation. ?? Negative for intraepithelial lesion or malignancy. ? HPV mRNA E6/E7: ?NOT DETECTED ? This assay detects E6/E7 viral messenger RNA (mRNA) from 14 high-risk HPV types (16, 18, ?? 31, 33, 35, 39, 45, 51, 52, 56, 58, 59, 66, 68) ? HPV testing performed by [facility], [place], [place]. ??See reference laboratory ?? portion of the EMR for entire report. ?Clinical Information LMP: 04/22/2023 Previous PAP test: Unknown date/findings ? Material Received ?? ThinPrep-Cervical ----- ------- Signed (signature on file) Angy Lynn 06/04/23 1119 ? ----- ------- ? END OF REPORT ? us Shirley Octaviano [facility] CYTOLOGY ORDERABLES F inal Result [facility] [address] [place] [address] [phone] * Hepatitis C Antibody with Reflex to HCV RNA,PCR w/Reflex to Genotype, LiPA (11/07/2022 12:06 PM EDT) Pathologist [facility] Hepatitis C Antibody NON-REACT MUNDO NON-REACT MUNDO [facility] Comment: HCV antibody was non-reactive. There is no laboratory evidence of HCV infection. In most cases, no further action is required. However, if recent HCV exposure is suspected, a test for HCV RNA (test code 62979) is suggested. For additional information, please refer to http://education.Sponsify/faq/PNY292 (This link is being provided for informational/ educational purposes only.) 11/07/2022 12:0 6 PM EDT 11/07/2022 12:06 PM EDT Serenity Porsha DO LAB BLOOD ORDERABLES Final R esult Performing Organization Address [facility] Co de Phone Number [address], [facility] [place] [phone] [facility] [address] [place] [phone] * HIV-1/2 Antigen and Antibodies, Fourth Generation, with Reflexes (11/07/2022 12:06 PM EDT) [facility] HIV Antigen/Antibody, 4th Generation NON-REAC TIVE NON-REAC TIVE [facility] Comment: HIV-1 antigen and HIV-1/HIV-2 antibodies were not detected. There is no laboratory evidence of HIV infection. PLEASE NOTE: This information has been disclosed to you from records whose confidentiality may be protected by state law. ??If your state requires such protection, then the state law prohibits you from making any further disclosure of the information without the specific written consent of the person to whom it pertains, or as otherwise permitted by law. A general authorization for the release of medical or other information is NOT sufficient for this purpose. ?? For additional information please refer to http://education.[employer].Plan A Drink/faq/QBS839 (This link is being provided for informational/ educational purposes only.) The performance of this assay has not been clinically validated in patients less than 2 years old. Blood Venous blood specimen / Unknown 11/07/2022 12:06 PM EDT 11/07/2022 12:06 PM EDT Serenity Story DO LAB BLOOD ORDERABLES Final R esult Performing Organization Address City/[facility]/ZIP Co de Phone Number [address], [facility] [place] [address] [facility] [place] [facility] [address] [place] [phone] * (ABNORMAL) Lipid Panel, Standard (11/07/2022 12:06 PM EDT) Cholesterol, Total 138 <200 mg/dL [facility] [place] [facility] HDL Cholesterol 48(L) > OR = 50 mg/dL [facility] [place] [facility] Triglycerides 112 <150 mg/dL [facility] [place] [facility] LDL Cholesterol 70 mg/dL (calc) [facility] [place] [facility] Comment: Reference range: <100 Desirable range <100 mg/dL for primary prevention; ?? <70 mg/dL for patients with CHD or diabetic patients with > or = 2 CHD risk factors. LDL-C is now calculated using the Lexi calculation, which is a validated novel method providing better accuracy than the Friedewald equation in the estimation of LDL-C. Santhosh JAVED et al. FELICITAS. 2013;310(19): 4217-0152 (http://education.Sponsify/faq/GYY783) Chol/HDLC Ratio 2.9 <5.0 (calc) [facility] Non-HDL Cholesterol 90 <130 mg/dL (calc) [facility] [place] [facility] Comment: For patients with diabetes plus 1 major ASCVD risk factor, treating to a non-HDL-C goal of <100 mg/dL (LDL-C of <70 mg/dL) is considered a therapeutic option. Blood Venous blood specimen / Unknown 11/07/2022 12:06 PM EDT 11/07/2022 12:06 PM EDT Serenity Story DO LAB BLOOD ORDERABLES Final R esult [facility] [address], [place] [address] [facility] [address] [place] [phone] from Last 3 Months or Most Recently Relevant to Health Maintenance Insurance [employer] Care Teams Drum Printer Relationship Specialty Start Date End Date Cydney Coy MD [address] [place] [phone] PCP - General Family Medicine 04/29/19
--- OUTSIDE RECORDS SUMMARY | 2024-08-20 16:54 | XMS_ITS | Encounter Summary ---
Author Organization [employer] Address [address] [facility] 7t [place] [address] Care Team Providers Care Basting Marker Name Role Phone Cydney Coy MD Primary Care Provide r Encounter Details Date Type Department Care Team (Late st Contact Info) Description 05/30/2024 Telephone [facility] [address] [place] [address] Cydney Coy MD [address] [place], [place] [phone] Social History Tobacco Use Types Packs/Day Years Used Date Smoking Tobacco: Never Smokeless Tobacco: Never Alcohol Use Standard Drinks/Week Comments Never 0 (1 standard drink = 0.6 oz pur e alcohol) Depression Answer Date Recorded Patient Health Questionnaire-9 Score 0 11/01/2022 Housing Stability Answer Date Recorded What is your housing situation today? I have iankenia maloney 03/19/[address] you [...] Orientation Straight 03/13/2022 10 :19 AM EDT documented as of this encounter Plan of Treatment Not on file documented as of this encounter Visit Diagnoses Not on filedocumented in this encounter Additional Health Concerns Assessment Noted Time PHQ-9 Depression Total Score: 0 11/02/19 23 11:28 AM EDT documented as of this encounter Care Teams Basting Marker Relationship Specialty Start Date End Date Cydney Coy MD [address] [place] [address] PCP - General Family Medicine 04/29/19 documented as of this encounter
--- OUTSIDE RECORDS SUMMARY | 2024-08-20 16:54 | XMS_ITS | Encounter Summary ---
Author Organization [employer] Address [address] [facility] 7t [place] [address] Care Team Providers Care Kindergarten Assistant Name Role Phone Cydney Coy MD Primary Care Provide r Reason for Visit * Reason Comments Med Refill Encounter Details Date Type Department Care Team ([facility] st Contact Info) Description 07/21/2022 Refill [facility] [address] [place] [phone] Name, MD Tiburcio [address] [place] [address] Vaginal discharge; Acute vaginitis Social History Tobacco Use Types Packs/Day Years Used Date Smoking Tobacco: Never Smokeless Tobacco: Never Comments Unknown Sex and Gender Information Value Date Recorded Sex Assigned at Female 03/13/2022 10:19 AM EDT Legal Sex Female 10:19 AM EDT Gender Identity Female 03/13/2022 10:19 AM EDT Sexual Orientation Straight 03/13/2022 10 :19 AM EDT COVID-19 Exposure Response Date Recorded In the last 10 days, have yo u been in contact with someone who was confirmed or suspected to have Coronavirus/COVID-19? No / Unsure 07/14/2022 3:20 PM EST documented as of this encounter Plan of Treatment Not on file documented as of this encounter Visit Diagnoses Diagnosis Vaginal discharge Leukorrhea, not specified as infective Acute vaginitis Unspecified vaginitis and vulvovaginitis documented in this encounter Care Teams Kindergarten Assistant Relationship Specialty Start Date End Date Cydney Coy MD [address] [place] [phone] PCP - General Family Medicine 04/29/19 documented as of this encounter
--- OUTSIDE RECORDS SUMMARY | 2024-08-20 16:54 | XMS_ITS | Encounter Summary ---
Author Organization [employer] Address [address] [facility] [address] [place] [address] Care Team Providers Care Television Technician Name Role Phone Cydney Coy MD Primary Care Provide r Encounter Details Date Type Department Care Team (Late st Contact Info) Description 08/20/2024 Orders Only GENERIC EXTERNAL DATA DEPARTMENT Provider, Generic External Data Social History Tobacco Use Types Packs/Day Years [...] on file documented as of this encounter Procedures Procedure Name Priority Date/Time Associated Diagnosis Comments HEPATIC FUNCTION PANEL Routine 08/20/2024 2:47 PM EDT documented in this encounter Results * (ABNORMAL) Hepatic Function Panel (08/20/2024 2:47 PM EDT) Bilirubin, Total 0.9 0.0 - 1.0 mg/dL [facility] Bilirubin, Direct 0.2 0.0 - 0.5 mg/dL [facility] Aspartate Amino Transferase 17 5 - 31 U/L [facility] Alanine Aminotransferase 15 0 - 31 U/L [facility] Total Protein 6.4(L) 6.5 - 8.0 g/dL [facility] Albumin Level 3.7 3.5 - 5.0 g/dL [facility] Alkaline Phosphatase 74 39 - 117 U/L [facility] 08/20/2024 2:47 PM EDT 08/20/2024 2:47 PM EDT us Generic External Data Provider LAB BLOOD ORDERAB LES Final Result Performing Organization Address City/State/[facility] Co de Phone Number [facility] [address] [place] [phone] documented in this encounter Visit Diagnoses Not on filedocumented in this encounter Additional Health Concerns Assessment Noted Time PHQ-9 Depression Total Score: 0 11/02/19 23 11:28 AM EDT documented as of this encounter Care Teams Television Technician Relationship Specialty Start Date End Date Cydney Coy MD [address] [place] [phone] PCP - General Family Medicine 04/29/19 documented as of this encounter
== END 2024-08-20 14:41 | disposition home or self-care (01) ==
LOC: HO.LAB 14:40
PROVIDERS: PCP Internal Medicine; Visit Provider Podiatrist Foot Surgery
DX: B35.1 Tinea unguium (principal)
CPT/HCPCS: 36415; 80076

== ENCOUNTER 2024-10-16 16:18 | Outpatient (REF) | payer OTHER, SELFPAY ==
[2024-10-16 18:15] LABS: Bacterial Vaginosis PCR NEGATIVE (Negative); Candida Group PCR DETECTED (Not Detect); Candida glab krusei PCR NOT DETECTED (Not Detect); Trichomonas vaginalis PCR NOT DETECTED (Not Detect)
--- OUTSIDE RECORDS SUMMARY | 2024-10-16 18:15 | XMS_ITS | Encounter Summary ---
Author Organization [employer] Address [address] [place] [address] [address] [place] [address] Care Team Providers Care Landfill Gas Collection System Operator Name Role Phone Cydney Coy MD Primary Care Provide r Reason for Visit * Reason Comments Med Refill Encounter Details Date Type Department Care Team ([facility] st Contact Info) Description 07/21/2022 Refill [facility] [address] [place] [address] [phone] Name, MD [address] [place] [address] Vaginal discharge; Acute vaginitis Social History Tobacco [...] vulvovaginitis documented in this encounter Care Teams Landfill Gas Collection System Operator Relationship Specialty Start Date End Date Cydney Coy MD [address] [place] [phone] PCP - General Family Medicine 04/29/19 documented as of this encounter
[2024-10-16 18:43] LABS: CT PCR NOT DETECTED (Not Detect.); NG PCR NOT DETECTED (Not Detect.)
== END 2024-10-16 16:19 | disposition home or self-care (01) ==
LOC: HO.HHCLNP 16:18
PROVIDERS: Visit Provider Internal Medicine
DX: N89.8 Other specified noninflammatory disorders of vagina (principal); R30.0 Dysuria
CPT/HCPCS: 81515; 87086; 87491; 87591

== ENCOUNTER 2024-12-15 11:07 | Outpatient (REF) | payer OTHER, SELFPAY ==
--- OUTSIDE RECORDS SUMMARY | 2024-12-15 12:06 | XMS_ITS | Encounter Summary ---
Author Organization [employer] Address [address] [place] [address] [address] [place] [address] Care Team Providers Care Engineering Production Liaison Name Role Phone Cydney Coy MD Primary Care Provide r Reason for Visit * Reason Comments Med Refill Encounter Details Date Type Department Care Team ([facility] st Contact Info) Description 07/21/2022 Refill [facility] [address] [place] [address] [phone] Name, MD [address] [place] [address] Vaginal discharge; Acute vaginitis Social History Tobacco [...] vulvovaginitis documented in this encounter Care Teams Engineering Production Liaison Relationship Specialty Start Date End Date Cydney Coy MD [address] [place] [phone] PCP - General Family Medicine 04/29/19 documented as of this encounter
[2024-12-15 12:19] LABS: Alanine Aminotransferase 16 U/L (0-31); Albumin Level 4.3 g/dL (3.5-5.0); Alkaline Phosphatase 69 U/L (39-117); Aspartate Amino Transferase 18 U/L (5-31); Total Protein 7.0 g/dL (6.5-8.0)
== END 2024-12-15 11:08 | disposition home or self-care (01) ==
LOC: HO.LAB 11:07
PROVIDERS: PCP Internal Medicine; Visit Provider Podiatrist Foot Surgery
DX: B35.1 Tinea unguium (principal)
CPT/HCPCS: 36415; 80076

== ENCOUNTER 2025-02-12 11:34 | Outpatient (AMB) | payer OTHER, SELFPAY ==
--- NOTE | 2025-02-12 11:34 | MHC.OFFVIS ---
Vital Signs 02/12/25 11:58 Height 5 ft 3 in Weight 182 lb BMI 32.2 BP 124/72 Intake Visit Reasons: vaginal discharge Virtualization Engineer: Virtualization Engineer Present (Mandy) Accompanied by: Self / Same As Patient Allergies No Known Allergies Allergy (Verified 02/12/25 11:57) Medication List - Last Reconciled 02/12/25 by Marsha Rodriges CNM No Known Home Meds Is last menstrual period known: Yes Last menstrual period: 01/26/25 Post menopausal: No Patient : No HPI HPI vaginal discharge: Details: Patient is here because she experiences a vaginal discharge that is abundant and green on the outside that causes lots of itching and it happens about every month.. Patient has not seen this provider before on questioning previous visits with plant tour guide she was referred to [facility] for management of fibroids. She says she went and they told her she did not need surgery and she has a follow-up appointment with the original radiator repairer this coming May 15 keep an eye on them to make sure they do not grow.. She says she is not on any medications she is not diabetic she had her tubes tied so she does not need to worry about she has sex regularly with her she said she has seen her primary care provider Dr. Mae in the past and has been checked for all STDs and everything is always negative. She works at [employer]. she is dressed up for work. She showed me her underwear which she thought was cotton but turns out to be 100% nylon and she does also wear panty liners with them. [facility], [facility] Medical History Epidermal cyst Surgical History History of removal of cyst (~12/07/22) History of surgery of uterus History of tubal ligation Family History Maternal Grandmother Breast cancer Social History Household Members: Spouse and Children Housing: House Alcohol intake: never Patient Tobacco Use Status: Never used Tobacco Patient : No Current occupational status: employed Current occupation: Therapist Sexual orientation: Straight/Heterosexual Gender identity: Female Female Reproductive History Menstrual Age of Menarche: 15 Duration of menses: <3 days Date of last menstrual period: 01/26/25 control method: none Total pregnancies: 2 Full term: 2 Date of last pap smear: 05/24/23 (negative papsmear, negative hpv ) Date of Mammogram: 06/02/24 (bi rad 1) Physical Exam Vital Signs: Last Vital Signs BP 124/72 02/12/25 11:58 BMI result Body Mass Index 32.2 Other: While the exam is normal there is some vaginal and vulvar erythema and there is a thin white discharge which is consistent with yeast as well. External Female Exam: normal external appearance and normal appearance of the urethra Speculum Exam - Vagina: normal appearance of the vagina and normal vaginal discharge Speculum Exam - Cervix: normal appearance of the cervix and Cervical os closed Assessment & Plan Assessment & Plan (1) Yeast infection of the vagina: Code(s): B37.31 - Acute candidiasis of vulva and vagina Category: Medical (2) Vaginal itching: Code(s): N89.8 - Other specified noninflammatory disorders of vagina Category: Medical (3) Vaginal discharge: Code(s): N89.8 - Other specified noninflammatory disorders of vagina Category: Medical Plan ---I reviewed her symptoms we reviewed what she may have done alleviate symptoms. I reviewed contributing factors to yeast infection including clothing that may be a little tight or does not permit air to pass to the vulva well, including non cotton underwear, nylon and polyester type workout clothes and yoga pants, use of panty liners pads for periods etc. My recommendations include use of the medication that we decided upon, allowing air to her vulva as much as possible including wearing cotton underwear and possibly no underwear at night when possible. Any other contributing factors were explored. I encouraged her not to scratch. I reviewed what to do when she feels symptoms first starting, (re-double her efforts at allowing air to the area.) -----I also discussed all the normal cyclic changes that happen with vaginal discharge related to ovulation and in addition changes that occur because of the environment such as nylon underwear and panty liners etc. see following discussion. Discussed our normal vaginal merced and the wide variety of abundant bacteria and fungus I and mucus components that may get up in a complex changing environment responding to anything that we put in and substances we may use for cleansing or wiping as well as sexual intercourse and any introduced bacteria and viruses. Discussed the hormonal shifts that happen through a normal menstrual cycle contributing to changes in the vaginal discharge from clear after the the. To clear and white slippery and abundant like egg white around the time of ovulation, followed by a thickening and drying of the scant white mucus afterwards until a new. Comes. All of these changes are responding to the hormonal shifts in our cycle. Also discussed the limitations of our testing, which are testing for the DNA of the following microbes. Currently, one of the tests we have includes a test that tests for Gardnerella, rivera, and trichomoniasis (which is an STD). The other test we use tests concurrently for the presence of chlamydia and gonorrhea. As both of these are not normal vaginal merced, but instead are only sexually transmitted they are in fact in STD or STI, and do need to be treated as well as the partner needs to be treated The presence of Gardnerella does not necessarily mean that we have bacterial vaginosis but the syndrome of bacterial vaginosis includes the creamy adherent discharge that clings to the epithelial cells of the vaginal wall and coats the cells with bacteria and Im part fishy odor when the pH of the environment is altered by either menstrual flow urine or semen or other products. If this discharge is also accompanied by itching and discomfort and any other symptoms than it is worth treating . The presence of Rivera alone does not necessarily mean a yeast infection but if there is itching burning vaginal redness and irritation then then that is an indication of a yeast infection and is definitely worth treating. Both of these conditions can be in part prevented by use of cotton under clothing, avoidance of tight clothing in general allowing air to vaginal areas and vulva avoidance of other soaps and scented products and chemicals, and condom use. In addition avoidance of menstrual sanitary products like pads and panty liners can contribute to better health as well. For this episode which seems very evident for yeast, I am offering her a prescription for either vaginal antifungal cream or oral antifungal she chose oral so I am prescribing fluconazole. I am giving her a couple of refills as well but I asked her to work on prevention and to switch to cotton underwear and save the nylon for special occasions of limited use and additionally try to go without on these at night and try not to scratch or have sex until she feels better. She had heard about not wearing panty liners in the past but has gotten used to them. Orders: Orders CT NG by PCR Vag/Cerv 02/12/25 N89.8 - Other specified noninflammatory disorders of vagina Bacterial Vaginosis Panel 02/12/25 B37.31 - Acute candidiasis of vulva and vagina, N89.8 - Other specified noninflammatory disorders of vagina Medications: New fluconazole may repeat second dose 72 hrs after first dose if symptoms persist 150 mg PO Q3D 2 tabs 2RF 2 doses Coding Level of Care Code New Pt Prev Care 40-64y(06286) Diagnoses Yeast infection of the vagina B37.31 Vaginal itching N89.8 Vaginal discharge N89.8
[2025-02-12 11:58] VITALS: BP 124/72; BMI 32.2
--- OUTSIDE RECORDS SUMMARY | 2025-02-12 13:24 | XMS_ITS | Encounter Summary ---
Author Organization [employer] Address [address] [place] [address] 7 [place] [address] Care Team Providers Care Personnel Placement Specialist Name Role Phone Cydney Coy MD Primary Care Provide r Reason for Visit * Reason Comments Med Refill Encounter Details Date Type Department Care Team (Late Contact Info) Description 07/21/2022 Refill [facility] [address] [place] [address] [phone] Name, MD Tiburcio [address] [place] [phone] Vaginal discharge; Acute vaginitis Social History Tobacco [...] as of this encounter Plan of Treatment Upcoming Encounters Date Type Department Care Team (Late st Contact Info) Description 04/17/2025 1:45 PM EST Office Visit [facility] [address] [place] [address] [phone] Cydney Coy MD [address] [place], [place] [phone] documented as of this encounter Visit Diagnoses Diagnosis Vaginal discharge Leukorrhea, not specified as infective Acute vaginitis Unspecified vaginitis and vulvovaginitis documented in this encounter Care Teams Personnel Placement Specialist Relationship Specialty Start Date End Date Cydney Coy MD [address] [place] [phone] PCP - General Family Medicine 04/29/19 documented as of this encounter
--- OUTSIDE RECORDS SUMMARY | 2025-02-12 13:24 | XMS_ITS | Clinical Summary ---
Author Organization [employer] Address [address] [place] [address] [address] [place] [address] Care Team Providers Care Janitorial Supervisor Name Role Phone Cydney Coy MD Primary Care Provide r Allergies No known active allergies Medications hydrocortisone 1 % cream APPLY TO THE AFFECTED AREA(S) EVERY DAY 022 Active phentermine 15 MG capsuleIndicati ons:Class 1 obesity due to excess calories with serious comorbidity and body mass index (BMI) of 31.0 to 31.9 in adult Take 1 capsule (15 mg) by mouth before breakfast. 30 capsule 1 025 2024 Active topiramate (Topamax) 25 MG tabletIndicatio ns:Class 1 obesity due to excess calories with serious comorbidity and body mass index (BMI) of 31.0 to 31.9 in adult Take 1 tablet (25 mg) by mouth Once per day. 30 tablet 2 025 2025 Active lidocaine (Xylocaine) 2 % solution Mix 80 mL of maalox with 80 mL of diphenhydramine and 80 mL of lidocaine 2% cornelius and take 1 mL of mixture by mouth 4 times daily, Swish and spit. Apply sm amt of lidocaine topically to oral ulcers 4x a day prn 100 mL 023 2024 Discontinued diphenhydrAMINE (BENADryl) 12.5 MG/5ML elixir Mix 80 mL of benadryl with 80 mL of maalox and 80 mL of lidocaine 2% solution and take 1 mL of mixture by mouth 4 times daily as needed for pain, Swish and spit 80 mL 023 2024 Discontinued cholecalciferol (Vitamin D-3) 50 MCG (1999 UT) capsuleIndicati ons:Vitamin D deficiency Take 1 capsule by oral route once daily 30 capsule 11 023 2024 Discontinued diclofenac (Cataflam) 50 MG tabletIndicatio ns:Pelvic pain Take 1 tablet (50 mg) by mouth 3 times daily. 90 tablet 024 2024 Discontinued estradiol (Estrace) 0.1 MG/GM vaginal cream Insert 1 g into the vagina in the morning. 1g vaginally x 14d, then twice weekly thereafter 45 g 2 024 2024 Discontinued Blood Pressure Monitoring (Blood Pressure Cuff) miscIndications :Primary hypertension 1 each Once daily. 1 each 024 2024 Discontinued amLODIPine (Norvasc) 10 MG tabletIndicatio ns:Primary hypertension Take 1 tablet (10 mg) by mouth in the morning. 30 tablet 11 024 2024 Discontinued Active Problems Problem Noted Date Diagnosed Date Class 1 obesity due to exces s calories with serious comorbidity and body mass index (BMI) of 31.0 to 31.9 in adult 01/29/2025 Assessment & Plan (01/30/2025 4:02 PM EDT): Extensive counseling about healthy diet and exercise done today I decided to start her on phentermine 15 mg daily together with topiramate 25 mg daily Conversation about side effects of these medications was done she is aware of anxiety palpitations dry mouth and possible elevation of the blood pressure she will monitor at home Plan is to follow-up with her in 4 to 6 weeks for weight monitoring and side effect monitoring Change in nevus 01/29/2025 Assessment & Plan (01/30/2025 4:03 PM EDT): I will refer patient to dermatology Vaginal discharge 10/16/2024 Assessment & Plan (01/30/2025 4:03 PM EDT): Gynecology referral as per patient request Assessment & Plan (10/16/2024 4:11 PM EDT): Most likely BV, follow-up vaginal swab results We discussed regarding potential diagnoses including STIs or vaginal candidiasis as well, I will call back as needed abnormal results. 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 Hydrosalpinx 06/21/2023 Primary hypertension 06/21/2023 Assessment & Plan (01/30/2025 4:01 PM EDT): Not on medications anymore I advised low-sodium diet and to monitor blood pressure at home Assessment & Plan (06/22/2023 4:49 PM EST): [...] Encounters Date Type Department Care Team Description 01/29/2025 3:15 PM EDT Office Visit [address] [phone] Cydney Coy MD Primary hypertension (Primary Dx); Dietary counseling; Exercise counseling; Class 1 obesity due to excess calories with serious comorbidity and body mass index (BMI) of 31.0 to 31.9 in adult; Change in nevus; Vaginal discharge 01/29/2025 Travel 01/28/[address] [phone] Cydney Coy MD Chart Prep 01/23/[address] [phone] Cydney Coy MD Medication Question 01/23/[address] [phone] Cydney Coy MD Nurse Triage from Last 3 Months Immunizations Immunization Administration Dates Next Due Hep B, adult [...] Answer Date Recorded Patient Health Questionnaire-9 Score 2 01/29/2025 Patient Health Questionnaire-9 Score 2 01/29/2025 Last PHQ-9: Questionnaire Data Not on file 0 01/29/2025 Housing Stability Answer Date Recorded What is your housing situation today? I have ian maloney 01/29/[address] you li ve. Do you have problems with any of the following? None of the above 01/29/2025 Food Insecurity Answer Date Recorded Within the past 12 months, y ou worried that your food would run out before you got money to buy more: Sometimes True 2024 Within the past 12 months,th e food you bought just didn't last and you didn't have enough money to get more: Sometimes True 01/29/2025 Transportation Answer Date Recorded In the past 12 months, has l ack of transportation kept you from medical appts, meetings, work or from getting things needed for daily living? No 01/29/2025 Utilities Answer Date Recorded In the past 12 months, has t he electric, gas, oil or water company threatened to shut off services in your home? Yes 01/29/2025 Depression Answer Date Recorded Patient Health Questionnaire-2 Score 1 01/29/2025 Internet Access Answer Date Recorded Internet Access Q1 Yes 01/29/2025 Internet Access Q2 Not on file 01/29/2025 Comments No Sex and Gender Information Value Date Recorded Sex Assigned at Female 03/13/2022 10:19 AM EDT Legal Sex Female 10:19 AM EDT Gender Identity Female 03/13/2022 10:19 AM EDT Sexual Orientation Straight 03/13/2022 10 :19 AM EDT Last Filed Vital Signs Vital Sign Reading Time Taken Comments Blood Pressure 122/80 01/29/2025 3:20 PM EDT Pulse 71 01/29/2025 3:20 PM EDT Temperature 36.5 C (97.7 F) 10/16/2024 11:41 AM EDT Respiratory Rate 21 01/29/2025 3:20 PM EDT Oxygen Saturation 98% 01/29/2025 3:20 PM EDT Inhaled Oxygen Concentration - - Weight 79.6 kg (175 lb 6.4 oz) 01/29/2025 3:20 P M EDT Height 160 cm (5' 3 ) 01/29/2025 3:20 PM EDT Body Mass Index 31.07 01/29/2025 3:20 PM EDT Plan of Treatment Upcoming Encounters Date Type Department Care Team (Late st Contact Info) Description 04/17/2025 1:45 PM EST Office Visit [facility] [address] [place] [address] Cydney Coy MD [address] [place] [address] Health Maintenance Due Date Last Done Comments Disability Screening 1980 Family Planning (PISQ) 09/17/1995 HPV Vaccines (1 - 3-dose series) 09/17/1995 Hepatitis B Vaccines (2 of 3 - 19+ 3-dose series) 03/30/2010 03/02/2010 DTaP/Tdap/Td Vaccines (2 - T d or Tdap) 12/18/2024 12/18/2014, 06/04/2007 COVID-19 Vaccine (3 - 2024-2 6 season) 2025 01/21/2021, 12/24/2020 Influenza Vaccine (#1) 2025 3, 01/23/2012, 06/21/2011 Mammogram 06/02/2025 06/02/2024, 05/28/2023 Alcohol/Substance Use Screening 01/29/2026 01/29/2025 Depression Screening 01/29/2026 01/29/2025, 01/29/2025 SDOH Screening 01/29/2026 01/29/2025 Tobacco Screening 01/29/2026 01/29/2025 Lipid Panel 11/08/2027 11/07/2022 Cervical Cancer Screening [...] patient's age to complete this topic Meningococcal B Vaccine Aged Out No l onger eligible based on patient's age to complete this topic Meningococcal Vaccine Aged Out No linda stephon eligible based on patient's age to complete this topic Pneumococcal Vaccine: Pediatrics (0 to 5 Years) and At-Risk Patients (6 to 49) Years Aged Out No longer eligible b ased on patient's age to complete this topic RSV under 20 months Aged Out No longe r eligible based on patient's age to complete this topic Rotavirus Vaccines Aged Out No longer eligible based on patient's age to complete this topic Procedures Procedure Name Priority Date/Time Associated Diagnosis Comments BI MAMMOGRAM SCREENING TOMOSYNTHESIS BILATERAL Routine 06/02/2024 [...] Recently Relevant to Health Maintenance Results * BI Mammogram Screening Tomosynthesis Bilateral (06/02/2024 1:12 PM EST) Anatomical Region Laterality Modality Breast Bilateral Mammography 06/02/2024 1:12 PM EST Narrative 06/10/2024 12:06 PM EST [facility] [address] [place], [place] [address] Mammography Report Signed Patient: Nancy Hernandez MR#: [id number] : 1980 Acct:[id number] Age/Sex: 43 / F ADM Date: 06/02/24 Loc: MAMMO Attending Dr: Cydney Yusuf MD Ordering Physician: Cydney Coy MD Results: 1Negative Date of Service: 06/02/24 Follow Up: 1 Year From Orig inal Mammogram Procedure(s): MM tomosynthesis screening BI Accession Number(s): [id number] cc: Cydney Coy MD EXAMINATION: MM SCREENING [...] by: Claudia Gimenez DO 06/10/2024 12:03 PM [facility] Dictated By: Claudia Gimenez DO Signed By: <Electronically signed by Claudia Gimenez DO in OV> 06/10/24 1203 DD/ 1312 TD/TT: 06/02/24 1326 Rn Otolaryngology: Procedure Note Donotuseinterpreter, Image - 06/10/2024 [facility] [address] [place] [address] Mammography Report Signed Patient: Ronal Hernandez#: [id number] : 1980Acct:[id number] Age/Sex: 43 / FADM Date: 06/02/24 Loc: MAMMO Attending Dr: Cydney Yusuf MD Ordering Physician: Cydney Coy MDResults: 1Negative Date of Service: 06/02/24Follow Up: 1 Year From Orig ina Mammogram Procedure(s): MM tomosynthesis screening BI Accession Number(s): [id number] cc: Cydney Coy MD EXAMINATION: MM SCREENING [...] Claudia Gimenez DO 06/10/2024 12:03 PM EST Dictated By: Claudia Gimenez DO Signed By: <Electronically signed by Claudia Gimenez DO in OV> 06/10/24 1203 DD/ 1312 TD/TT: 06/02/24 1326 Rn Otolaryngology: Cydney Yusuf MD IM BI PROCEDURES Fin al Result * HPV mRNA E6/E7 w/Reflex to HPV Genotypes 16, 18/45 (05/24/2023 9:53 AM EST) HPV nRNA E6/E7 Not Detected Not Detected [facility] Comment:Methodology: Transcr iption-Mediated AmplificationThis assay detects E6/E7 viral messenger RNA (mRNA) from 14high-risk HPV types (16,18,31,33,35,39,45,51,52,56,58,59,66,68).Cervical sources are required for HPV testing.If a vaginal source from a patient who has had atotal hysterectomy with removal of cervix wassubmitted, please contact the testing laboratoryfor alternative testing options.For additional information, please refer tohttp://education.BlueNote Networks/faq/XVF568a8(This link if provided for information/educational purposes only.)THIS TEST WAS PERFORMED AT:[facility] [place] [phone] TSANG MD HPV mRNA E6/E7 [facility] HPV 16 RNA [facility] HPV 18/45 RNA [facility] 05/24/2023 9:53 AM EST 05/25/2023 11:20 AM EST us Shirley Kingsley [facility] CYTOLOGY ORDERABLES F inal Result Performing Organization Address City/State/[facility] Co de Phone Number [facility] [address] [place] [phone] * Pap Smear (05/24/2023 9:53 AM EST) Swab Cervix uteri structure / Unknown 05/24/2023 9:53 AM EST 05/25/2023 11:20 AM EST Narrative [facility] - 06/04/2023 11:19 AM EST ----- ------- Name: Lorenakingsley LagunasNancy Age/Sex: 42/F : 1980 Unit#: [id number] Attend Dr: Re05/24/23 Status: PRE REF Location: [facility] Disch: ----- ------- SPEC : [id number] RECD: 05/25/23 STATUS: CAROLYNE OLIVAREZ NUM: [id number] ALEJANDRA: 05/24/23 [facility] DR: SHIRLEY KINGSLEY [facility] ENTERED: 05/25/23 SP TYPE: Pap Smr OTHR DR: ORDERED: Pap Smear Interpretation Satisfactory for evaluation. Negative for intraepithelial lesion or malignancy. HPV mRNA E6/E7: NOT DETECTED This assay detects E6/E7 viral messenger RNA (mRNA) from 14 high-risk HPV types (16, 18, 31, 33, 35, 39, 45, 51, 52, 56, 58, 59, 66, 68) HPV testing performed by [facility], [place], [place]. See reference laboratory portion of the EMR for entire report. Clinical Information LMP: 04/22/2023 Previous PAP test: Unknown date/findings Material Received ThinPrep-Cervical ----- ------- Signed (signature on file) Angy Lynn 06/04/23 1119 ----- ------- END OF REPORT Shirley Wilkesvineet [facility] CYTOLOGY ORDERABLES F inal Result [facility] [address] [place] [phone] * Hepatitis C Antibody with Reflex to HCV RNA,PCR w/Reflex to Genotype, LiPA (11/07/2022 12:06 PM EDT) Hepatitis C Antibody NON-REACT MUNDO NON-REACT MUNDO [facility] [place] [facility] Comment: HCV antibody was non-reactive. There is no laboratory evidence of HCV infection. In most cases, no further action is required. However, if recent HCV exposure is suspected, a test for HCV RNA (test code 49212) is suggested. For additional information, please refer to http://education.Yobongo/faq/SEC715 (This link is being provided for informational/ educational purposes only.) 11/07/2022 12:0 6 PM EDT 11/07/2022 12:06 PM EDT Serenity Story DO LAB BLOOD ORDERABLES Final R esult [facility] [address], [place] [address] [facility] [place] [facility] [address] [place] [address] * HIV-1/2 Antigen and Antibodies, Fourth Generation, with Reflexes (11/07/2022 12:06 PM EDT) HIV Antigen/Antibody, 4th Generation NON-REAC TIVE NON-REAC TIVE [facility] [place] [facility] Comment: HIV-1 antigen and HIV-1/HIV-2 antibodies were not detected. There is no laboratory evidence of HIV infection. PLEASE NOTE: This information has been disclosed to you from records whose confidentiality may be protected by state law. If your state requires such protection, then the state law prohibits you from making any further disclosure of the information without the specific written consent of the person to whom it pertains, or as otherwise permitted by law. A general authorization for the release of medical or other information is NOT sufficient for this purpose. For additional information please refer to http://BIO-NEMS.BlueNote Networks/faq/TQF497 (This link is being provided for informational/ educational purposes only.) The performance of this assay has not been clinically validated in patients less than 2 years old. Blood Venous blood specimen / Unknown 11/07/2022 12:06 PM EDT 11/07/2022 12:06 PM EDT us Serenity Story DO LAB BLOOD ORDERABLES Final R esult [facility] [address], [place] [address] [facility] [place] [facility] [address] [place] [address] * (ABNORMAL) Lipid Panel, Standard (11/07/2022 12:06 PM EDT) Cholesterol, Total 138 <200 mg/dL [facility] [place] [facility] HDL Cholesterol 48(L) > OR = 50 mg/dL [facility] [place] [facility] Triglycerides 112 <150 mg/dL [facility] [place] [facility] LDL Cholesterol 70 mg/dL (calc) [facility] [place] [facility] Comment: Reference range: <100 Desirable range <100 mg/dL for primary prevention; <70 mg/dL for patients with CHD or diabetic patients with > or = 2 CHD risk factors. LDL-C is now calculated using the Santhosh-Broyd calculation, which is a validated novel method providing better accuracy than the Friedewald equation in the estimation of LDL-C. Santhosh JAVED et al. FELICITAS. 2013;310(19): 4093-0641 (http://education.Yobongo/faq/XKZ835) Chol/HDLC Ratio 2.9 <5.0 (calc) [facility] Non-HDL Cholesterol 90 <130 mg/dL (calc) [facility] [place] [facility] Comment: For patients with diabetes plus 1 major ASCVD risk factor, treating to a non-HDL-C goal of <100 mg/dL (LDL-C of <70 mg/dL) is considered a therapeutic option. Blood Venous blood specimen / Unknown 11/07/2022 12:06 PM EDT 11/07/2022 12:06 PM EDT Serenity Porsha DO LAB BLOOD ORDERABLES Final R esult [facility] [address], [place] [address] [facility] [address] [place] [address] from Last 3 Months or Most Recently Relevant to Health Maintenance Insurance [place] [address] [place] [address] [employer] Care Teams Janitorial Supervisor Relationship Specialty Start Date End Date Cydney Coy MD [address] [place] [phone] PCP - General Family Medicine 04/29/19
== END 2025-02-12 13:43 | disposition home or self-care (01) ==
LOC: HO.HWSM 11:34
PROVIDERS: PCP Internal Medicine; Visit Provider Advanced Practice Midwife
DX: B37.31 Acute candidiasis of vulva and vagina (principal); N89.8 Other specified noninflammatory disorders of vagina
CPT/HCPCS: 99213

== ENCOUNTER 2025-02-12 11:34 | Outpatient (REF) | payer OTHER, SELFPAY ==
[2025-02-13 08:15] LABS: Bacterial Vaginosis PCR NEGATIVE (Negative); Candida Group PCR DETECTED (Not Detect); Candida glab krusei PCR NOT DETECTED (Not Detect); Trichomonas vaginalis PCR NOT DETECTED (Not Detect)
[2025-02-13 09:12] LABS: CT PCR NOT DETECTED (Not Detect.); NG PCR NOT DETECTED (Not Detect.)
== END 2025-02-12 11:35 | disposition home or self-care (01) ==
LOC: HO.LAB 11:34
PROVIDERS: PCP Internal Medicine; Visit Provider Advanced Practice Midwife
DX: N89.8 Other specified noninflammatory disorders of vagina (principal); B37.31 Acute candidiasis of vulva and vagina; Z20.2 Contact with and (suspected) exposure to infections with a predominantly sexual mode of transmission; Z98.51 Tubal ligation status
CPT/HCPCS: 81515; 87491; 87591

== ENCOUNTER 2025-04-17 14:31 | Outpatient (REF) | payer OTHER, SELFPAY ==
--- OUTSIDE RECORDS SUMMARY | 2025-04-17 13:45 | XMS_ITS | Encounter Summary ---
Author Organization [employer] Address [address] [place] [address] 7 [place] [address] Care Team Providers Care Model Builder Name Role Phone Cydney Coy MD Primary Care Provide r Reason for Referral * Medications - Closed Specialty Diagnoses / Procedures Referred By Contamber t Referred To Contact Diagnoses Class 1 obesity due to excess calories without serious comorbidity with body mass index (BMI) of 30.0 to 30.9 in adult Cydney Coy MD [address] [place] [address] Phone: tel: fax: Referral ID Status Reason Start Date Expiration Date Visits Re quested Visits Authorized [id number] Closed 1 1 Encounter Details Date Type Department Care Team (Late st Contact Info) Description 04/17/2025 1:45 PM EST Office Visit [facility] [address] [place] [address] Cydney Coy MD [address] [place] [address] Primary hypertension (Primary Dx); Vertigo; Other fatigue; Class 1 obesity due to excess calories without serious comorbidity with body mass index (BMI) of 30.0 to 30.9 in adult Social History Tobacco Use Types Packs/Day Years Used Date Smoking Tobacco: Never Smokeless Tobacco: Never Alcohol Use Standard Drinks/Week Comments Never 0 (1 standard drink = 0.6 oz pur e alcohol) Depression Answer Date Recorded Patient Health Questionnaire-9 Score 12 04/17/2025 Patient Health Questionnaire-9 Score 12 04/17/2025 Last PHQ-9: Questionnaire Data Not on file 1 06/18/2024 Housing Stability Answer Date Recorded What is [...] Answer Date Recorded Patient Health Questionnaire-2 Score 2 04/17/2025 Internet Access Answer Date Recorded Internet Access Q1 Yes 01/29/2025 Internet Access Q2 Not on file 01/29/2025 Comments No Sex and Gender Information Value Date Recorded Sex Assigned at Female 03/13/2022 10:19 AM EDT Legal Sex Female 10:19 AM EDT Gender Identity Female 03/13/2022 10:19 AM EDT Sexual Orientation Straight 03/13/2022 10 :19 AM EDT documented as of this encounter Last Filed Vital Signs Vital Sign Reading Time Taken Comments Blood Pressure 140/82 04/17/2025 1:53 PM EST Pulse 81 04/17/2025 1:53 PM EST Temperature 36 C (96.8 F) 04/17/2025 1:53 PM EST Respiratory Rate 22 04/17/2025 1:53 PM EST Oxygen Saturation 99% 04/17/2025 1:53 PM EST Inhaled Oxygen Concentration - - Weight 79.1 kg (174 lb 6.4 oz) 04/17/2025 1:53 P M EST Height 160 cm (5' 3 ) 04/17/2025 1:53 PM EST Body Mass Index 30.89 04/17/2025 1:53 PM EST documented in this encounter Functional Status * Over the past 2 weeks, how often have you been bothered by any of the following problems? Question Answer Date of Assessment Author Patient Health Questionnaire-2 Score 2 09/2024 2:30 PM EST Ade Villagomez [place] * Little interest or pleasure in doing things Answer Date of Assessment Author Not at all 04/17/2025 2:30 PM EST Bobby Villagomez ra, [place] * Feeling down, depressed, or hopeless Answer Date of Assessment Author More than half the days 04/17/2025 2:30 PM EST Ade Nayak [place] * Trouble falling or staying asleep, or sleeping too much Answer Date of Assessment Author More than half the days 04/17/2025 2:30 PM EST Ade Nayak MA * Feeling tired or having little energy Answer Date of Assessment Author Nearly every day 04/17/2025 2:30 PM EST Donna Villagomez MA * Poor appetite or overeating Answer Date of Assessment Author Nearly every day 04/17/2025 2:30 PM EST Donna Villagomez MA * Feeling bad about yourself - or that you are a failure or have let yourself or your family down Answer Date of Assessment Author Not at all 04/17/2025 2:30 PM Bobby Solano ra, [place] * Trouble concentrating on things, such as reading the newspaper or watching television Answer Date of Assessment Author More than half the days 04/17/2025 2:30 PM EST Ade Nayak MA * Moving or speaking so slowly that other people could have noticed? Or the opposite - being so fidgety or restless that you have been moving around a lot more than usual. Answer Date of Assessment Author Not at all 04/17/2025 2:30 PM Bobby Solano ra, [place] * Thoughts that you would be better off or hurting yourself in some way Answer Date of Assessment Author Not at all 04/17/2025 2:30 PM Bobby Solano ra, [place] * Patient Health Questionnaire-9 Score Answer Date of Assessment Author 12 04/17/2025 2:30 PM Bobby Solano ra, [place] * Over the last 2 weeks, how often have you been bothered by any of the following problems? Question Answer Date of Assessment Author Feeling nervous, anxious, or on edge 2 09/2024 2:30 PM Ade Solano MA Not being able to stop or co ntrol worrying 1 04/17/2025 2:30 PM Ade Solano MA Worrying too much about diff erent things 2 04/17/2025 2:30 PM Ade Solano MA Trouble relaxing 1 04/17/2025 2:30 PM EST Ade Nayak MA Being so restless that it is hard to sit still 2 04/17/2025 2:30 PM Ade Solano MA Becoming easily annoyed or irritable 1 09/2024 2:30 PM Ade Solano MA Feeling afraid as if somethi ng awful might happen 2 04/17/2025 2:30 PM Ade Solano MA FABRICE-7 Total Score 11 04/17/2025 2:30 PM Ade Solano MA * How difficult have these problems made it for you to do your work, take care of things at home, or get along with other people? Answer Date of Assessment Author Somewhat difficult 04/17/2025 2:30 PM Ade Solano MA documented as of this encounter Progress Notes * Cydney Yusuf MD - 04/17/2025 1:45 PM EST SUBJECTIVE: Nancy Lagunas is a 44 y.o. year old female who presents for Follow up . Nancy Lagunas, 44 years Vertigo and Presyncope - Two weeks ago, sudden episode while getting up from nail appointment, unable to stand, sensation of everything coming down, worsening over time - No improvement with alcohol (smelling) or water, had eaten normally prior to episode - Transported home with assistance, unable to lie down, stand, or sit comfortably, persistent dizziness described as horrible - Blood pressure measured at home during episode: 150-155/105 mmHg - Gradual improvement after sleeping, able to walk with support at 3:15 AM, still feeling unsteady - Persistent dizziness with positional changes, especially when looking up or changing shower curtain - No recurrence of severe episode in past two weeks, but continues to feel agitated, fatigued, and tired Fatigue and Palpitations - Ongoing severe fatigue and tiredness, feels crazy - Reports feeling short of breath at times, occasional palpitations - Denies chest pain - Symptoms of agitation and fatigue persist, especially with work schedule (wakes at 3:00 AM, sleeps at 10:00 PM, works daily from Sunday to Sunday) Gastrointestinal Symptoms - History of constipation, takes medication for bowel movements - Denies headache, nausea, vomiting, diarrhea during episode - Denies diarrhea on the day of the episode Weight Management - Previously started phentermine for weight loss, took for one month, experienced dry mouth, discontinued after one month Blood Pressure - Home blood pressure measured at 140/82 mmHg after initial episode Social History Social History Narrative Not on file Problem List[1] Avulsion of toenail Cellulitis of lower limb Eczema Irritable bowel syndrome Pelvic pain Elevated blood pressure reading Skin tag Uterine myoma Hydrosalpinx Primary hypertension Vaginal discharge Class 1 obesity due to excess calories with serious comorbidity and body mass index (BMI) of 31.0 to 31.9 in adult Change in nevus Vertigo Other fatigue Class 1 obesity due to excess calories without serious comorbidity with body mass index (BMI) of 30.0 to 30.9 in adult Family History[2] Review of Systems Constitutional: Positive for fatigue. Negative for activity change, appetite change, chills, diaphoresis, fever and unexpected weight change. HENT: Negative. Respiratory: Negative. Cardiovascular: Positive for palpitations. Negative for chest pain and leg swelling. Neurological: Positive for dizziness. Negative for tremors, seizures, syncope, facial asymmetry, speech difficulty, weakness, light-headedness, numbness and headaches. OBJECTIVE: Vitals: 04/17/25 1353 BP: (!) 140/82 BP Location: Left arm Patient Position: Sitting BP Cuff Size: Adult Pulse: 81 Resp: 22 Temp: 96.8 ??F (36 ??C) TempSrc: Temporal SpO2: 99% Weight: 174 lb 6.4 oz (79.1 kg) Height: 5' 3 (1.6 m) Physical Exam Constitutional: Appearance: Normal appearance. Cardiovascular: Rate and Rhythm: Normal rate and regular rhythm. Pulmonary: Effort: Pulmonary effort is normal. Breath sounds: Normal breath sounds. Abdominal: General: Abdomen is flat. Palpations: Abdomen is soft. Musculoskeletal: Right lower leg: No edema. Left lower leg: No edema. Neurological: Mental Status: She is alert. Follow Up: No follow-ups on file. Medications Ordered Prior to Encounter[3] Problem List Items Addressed This Visit Vertigo Relevant Medications meclizine (Antivert) 25 MG tablet Other fatigue Relevant Orders CBC auto differential Comprehensive Metabolic Panel Hemoglobin A1c HIV-1/2 Antigen and Antibodies, Fourth Generation, with Reflexes Hepatitis C Antibody with Reflex to HCV, RNA, Quantitative, Real-Time PCR Lipid Panel, Standard Vitamin D, 25-Hydroxy, Total, Immunoassay TSH with Reflex to Free T4 Iron And Total Iron Binding Capacity Vitamin B12/Folate, Serum Panel Class 1 obesity due to excess calories without serious comorbidity with body mass index (BMI) of 30.0 to 30.9 in adult Relevant Medications phentermine 37.5 MG capsule Primary hypertension - Primary Relevant Medications amLODIPine (Norvasc) 2.5 MG tablet Vertigo: - Vertigo episode attributed to a viral syndrome. Meclizine prescribed PRN - Ordered blood tests to evaluate for anemia, thyroid dysfunction, and vitamin and iron levels. Advised slow positional changes to prevent recurrence of vertigo. If symptoms persist, referral to vestibular therapy considered. Other fatigue: - Fatigue considered secondary to viral syndrome and recent vertigo episode. - Ordered blood tests to assess for anemia, thyroid dysfunction, and vitamin and iron levels. Advised adequate hydration and slow movements. Class 1 obesity due to excess calories without serious comorbidity with body mass index (BMI) of 30.0 to 30.9 in adult: - Class 1 obesity with stable weight noted. Previous prescription of phentermine discussed. - Advised to delay restarting phentermine until full recovery from current illness to avoid dehydration. Plan to increase phentermine dosage after recovery. Will monitor weight and follow up via phone appointment. - Risks and side effects: Discussed dry mouth as a side effect of phentermine. Primary hypertension: - Hypertension confirmed with recent elevated blood pressure readings. - Initiated low-dose antihypertensive therapy (2.5 mg) to be taken in the morning with breakfast. Advised home blood pressure monitoring at 10:00 AM and to record readings. Will follow up to assess response to therapy. This note was drafted using [employer] (AI) technology. The patient/patient's guardian has been informed and has consented to the use of this technology: Yes [1] Patient Active Problem List Diagnosis Avulsion of toenail Cellulitis of lower limb Eczema Irritable bowel syndrome Pelvic pain Elevated blood pressure reading Skin tag Uterine myoma Hydrosalpinx Primary hypertension Vaginal discharge Class 1 obesity due to excess calories with serious comorbidity and body mass index (BMI) of 31.0 to 31.9 in adult Change in nevus Vertigo Other fatigue Class 1 obesity due to excess calories without serious comorbidity with body mass index (BMI) of 30.0 to 30.9 in adult [2] Family History Problem Relation Name Age of Onset Uterine cancer Sister Breast cancer Mother's Sister 60 Breast cancer Maternal Grandmother 70 Breast cancer Maternal Cousin 40 [3] Current Outpatient Medications on File Prior to Visit Medication Sig Dispense Refill hydrocortisone 1 % cream APPLY TO THE AFFECTED AREA(S) EVERY DAY phentermine 15 MG capsule Take 1 capsule (15 mg) by mouth before breakfast. 30 capsule 1 topiramate (Topamax) 25 MG tablet Take 1 tablet (25 mg) by mouth Once per day. 30 tablet 2 No current facility-administered medications on file prior to visit. documented in this encounter Plan of Treatment Upcoming Encounters Date Type Department Care Team (Late st Contact Info) Description 06/02/2025 2:00 PM EST Telemedicine [facility] [address] [place] [phone] Cydney Coy MD [address] [place] [address] Scheduled Orders Name Type Priority Associated Diagnoses Orde r Schedule Comprehensive Metabolic Panel Lab Routine Other fatigue Expected: 04/17/2025 (Approximate), Expires: 04/17/2026 HIV-1/2 Antigen and Antibodies, Fourth Generation, with Reflexes Lab Routine Other fatigue Expected: 04/17/2025 (Approximate), Expires: 04/17/2026 Hepatitis C Antibody with Reflex to HCV, RNA, Quantitative, Real-Time PCR Lab Routine Other fatigue Expected: 04/17/2025, Expires: 04/17/2026 Lipid Panel, Standard Lab Routine Other fatigue Expected: 04/17/2025 (Approximate), Expires: 04/17/2026 Vitamin D, 25-Hydroxy, Total, Immunoassay Lab Routine Other fatigue Expected: 04/17/2025 (Approximate), Expires: 04/17/2026 TSH with Reflex to Free T4 Lab Routine Other fatigue Expected: 04/17/2025 (Approximate), Expires: 04/17/2026 Iron And Total Iron Binding Capacity Lab Routine Other fatigue Expected: 04/17/2025, Expires: 04/17/2026 Vitamin B12/Folate, Serum Panel Lab Routine Other fatigue Expected: 04/17/2025, Expires: 04/17/2026 documented as of this encounter Procedures Procedure Name Priority Date/Time Associated Diagnosis Comments CBC WITH AUTO DIFFERENTIAL Routine 04/17/2025 2:35 PM EST Other fatigue HEMOGLOBIN A1C Routine 04/17/2025 2:35 PM EST Other fatigue documented in this encounter Results * Hemoglobin A1c (04/17/2025 2:35 PM EST) Hemoglobin A1c 5.1 <6.0 % [facility] Comment:Hemoglobin A1C Refer ence Range Adults: 4.8 - 6.0 % Non diabetic: < 6.0 % Goal: < 7.0 %Additional Action Suggested: > 8.0 %Note: Hemoglobin A1c results are invalid for patients with abnormal amounts of HbF. Blood transfusions may impact the HbA1c concentration in the patient sample. Estimated Average Glucose 100 mg/dL [facility] Comment:eAG = Estimated ave rage glucose which is %A1C expressed asaverage glucose, using the formula of the A2O-CttofnjDxyfvsr Glucose study (ADAG), Diabetes Care, Vol.31,#8,Dec. 2007 Blood Venous blood specimen / Unknown 04/17/2025 2:35 PM EST 04/17/2025 4:03 PM EST us Cydney Yusuf MD LAB BLOOD ORDERABLES Final Result [facility] [address] [place] [phone] * CBC auto differential (04/17/2025 2:35 PM EST) White Blood Count 5.0 4.8 - 10.8 X10*3/uL [facility] Red Blood Count 4.44 4.20 - 5.50 X10*6/uL [facility] Hemoglobin 13.7 12.0 - 16.0 g/dl [facility] Hematocrit 39.7 37.0 - 47.0 % [facility] Mean Corpuscular Volume 89.4 80.0 - 98.0 fL [facility] Mean Corpuscular Hemoglobin 30.9 27.0 - 33.0 pg [facility] Mean Corpuscular HGB Conc 34.5 31.0 - 35.0 g/dl [facility] Red Cell Distribution Width 11.7 11.0 - 16.0 % [facility] Platelet Count 189 160 - 400 X10*3/uL [facility] Mean Platelet Volume 11.7 9.4 - 12.3 fL [facility] Neutrophils Percent Auto 63.7 45 - 73 % [facility] Imm Gran Pct Auto 0.2 0.0 - 0.4 % [facility] Lymphocytes Percent Auto 24.4 20 - 40 % [facility] Monocytes Percent Auto 9.7 2 - 11 % [facility] Eosinophils Percent Auto 1.2 0 - 4 % [facility] Basophils Percent Auto 0.8 0 - 2 % [facility] NRBC Pct Auto 0.0 0.0 - 0.2 /100WBC [facility] Neutrophils Absolute Auto 3.2 2.0 - 8.3 x10*3/uL [facility] Imm Gran Abs Auto 0.01 0.00 - 0.03 X10*3/uL [facility] Lymphocytes Absolute Auto 1.2 1.2 - 4.9 X10*3/uL [facility] Monocytes Absolute Auto 0.5 0.1 - 1.2 X10*3/uL [facility] Eosinophils Absolute Auto 0.1 0.0 - 0.4 X10*3/uL [facility] Basophils Absolute Auto 0.0 0.0 - 0.2 X10*3/uL [facility] NRBC Abs Auto 0.000 0.0 - 0.012 X10*3/uL [facility] Blood Venous blood specimen / Unknown 04/17/2025 2:35 PM EST 04/17/2025 4:03 PM EST us Cydney Yusuf MD LAB BLOOD ORDERABLES Final Result [facility] [address] [place] [address] [phone] documented in this encounter Visit Diagnoses Diagnosis Primary hypertension- Primary Unspecified essential hypertension Vertigo Dizziness and giddiness Other fatigue Class 1 obesity due to excess calories without serious comorbidity with body mass index (BMI) of 30.0 to 30.9 in adult documented in this encounter Additional Health Concerns Assessment Noted Time PHQ-9 Depression Total Score: 025 2:30 PM EST documented as of this encounter Care Teams Model Builder Relationship Specialty Start Date End Date Cydney Coy MD [address] [place] [phone] PCP - General Family Medicine 04/29/19 documented as of this encounter
[2025-04-17 16:07] LABS: MANUAL DIFF FLAG NO
[2025-04-17 16:15] LABS: Hematocrit 39.7 % (37.0-47.0); Hemoglobin 13.7 g/dl (12.0-16.0); Imm Gran Abs Auto 0.01 X10*3/uL (0.00-0.03); Imm Gran Pct Auto 0.2 % (0.0-0.4); Lymphocytes Absolute Auto 1.2 X10*3/uL (1.2-4.9); Mean Corpuscular HGB Conc 34.5 g/dl (31.0-35.0); Mean Corpuscular Hemoglobin 30.9 pg (27.0-33.0); Mean Corpuscular Volume 89.4 fL (80.0-98.0); NRBC Abs Auto 0.000 X10*3/uL (0.0-0.012); NRBC Pct Auto 0.0 /100WBC (0.0-0.2); Platelet Count 189 X10*3/uL (160-400); Red Blood Count 4.44 X10*6/uL (4.20-5.50); White Blood Count 5.0 X10*3/uL (4.8-10.8)
[2025-04-17 17:05] LABS: Hemoglobin A1C 76.2451 umol/L
--- OUTSIDE RECORDS SUMMARY | 2025-04-17 18:38 | XMS_ITS | Clinical Summary ---
Author Organization [employer] Address [address] [place] [address] 7t [place] [address] Care Team Providers Care Electrical Systems Drafter Name Role Phone Cydney Coy MD Primary Care Provide r Allergies No known active allergies Medications hydrocortisone 1 % cream APPLY TO THE AFFECTED AREA(S) EVERY DAY 2 Active phentermine 15 MG capsuleIndication s:Class 1 obesity due to excess calories with serious comorbidity and body mass index (BMI) of 31.0 to 31.9 in adult Take 1 capsule (15 mg) by mouth before breakfast. 30 capsule 1 5 Active topiramate (Topamax) 25 MG tabletIndications :Class 1 obesity due to excess calories with serious comorbidity and body mass index (BMI) of 31.0 to 31.9 in adult Take 1 tablet (25 mg) by mouth Once per day. 30 tablet 2 5 01/30/20 26 Active meclizine (Antivert) 25 MG tabletIndications :Vertigo Take 1 tablet (25 mg) by mouth if needed in the morning, at noon, and at bedtime for dizziness for up to 10 days. 30 tablet 5 04/27/20 25 Active phentermine 37.5 MG capsuleIndication s:Class 1 obesity due to excess calories without serious comorbidity with body mass index (BMI) of 30.0 to 30.9 in adult Take 1 capsule (37.5 mg) by mouth before breakfast. 30 capsule 1 5 05/17/19 26 Active amLODIPine (Norvasc) 2.5 MG tabletIndications :Primary hypertension Take 2 tablets (5 mg) by mouth Once per day. 60 tablet 11 5 04/17/20 26 Active Active Problems Problem Noted Date Diagnosed Date Vertigo 04/17/2025 Other fatigue 04/17/2025 Class 1 obesity due to exces s calories without serious comorbidity with body mass index (BMI) of 30.0 to 30.9 in adult 04/17/2025 Class 1 obesity due to exces s [...] Encounters Date Type Department Care Team Description 04/17/2025 1:45 PM EST Office Visit [facility] [address] [place], [place] [phone] Cydney Coy MD Primary hypertension (Primary Dx); Vertigo; Other fatigue; Class 1 obesity due to excess calories without serious comorbidity with body mass index (BMI) of 30.0 to 30.9 in adult 04/17/2025 Travel 04/16/[address] [address] Cydney Coy MD chart prep 04/07/2025 Patient Outreach [address] [address] yCdney Coy MD Pre-visit Planning (Pre-visit planning - LVM ) 02/12/2025 Orders Only GENERIC EXTERNAL DATA DEPARTMENT Provider, Generic External Data 01/29/2025 3:15 PM EDT Office Visit [address] [address] Cydney Coy MD Primary hypertension (Primary Dx); Dietary counseling; Exercise counseling; Class 1 obesity due to excess calories with serious comorbidity and body mass index (BMI) of 31.0 to 31.9 in adult; Change in nevus; Vaginal discharge 01/29/2025 Travel 01/28/[address] [address] Cydney Coy MD Chart Prep 01/23/[address] [address] Cydney Coy MD Medication Question 01/23/[address] [address] Cydney Coy MD Nurse Triage from Last [...] Mass Index 30.89 04/17/2025 1:53 PM EST Plan of Treatment Upcoming Encounters Date Type Department Care Team (Late st Contact Info) Description 06/02/2025 2:00 PM EST Telemedicine [facility] [address] [place] [address] Cydney Coy MD [address] [place], [place] [phone] Health Maintenance Due Date Last Done Comments [...] 3, 01/23/2012, 06/21/2011 Mammogram 06/02/2025 06/02/2024, 05/28/2023 Depression Monitoring 10/16/2025 04/17/2025 , 04/17/2025 Alcohol/Substance Use Screening 01/29/2026 01/29/2025 SDOH Screening 01/29/2026 01/29/2025 Tobacco Screening 04/17/2026 04/17/2025 Lipid Panel 11/08/2027 11/07/2022 Cervical Cancer Screening [...] Procedure Name Priority Date/Time Associated Diagnosis Comments HEMOGLOBIN A1C Routine 04/17/2025 2:35 PM EST Other fatigue CBC WITH AUTO DIFFERENTIAL Routine 04/17/2025 2:35 PM EST Other fatigue CHLAMYDIA/N. GONORRHOEAE RNA, TMA, UROGENITAL Routine 02/12/2025 4:11 PM EDT BACTERIAL VAGINOSIS PANEL Routine 02/12/2025 4:11 PM EDT BI MAMMOGRAM SCREENING TOMOSYNTHESIS BILATERAL [...] Recently Relevant to Health Maintenance Results * CBC auto differential (04/17/2025 2:35 PM EST) White Blood Count 5.0 4.8 - 10.8 X10*3/uL [facility] Red Blood Count 4.44 4.20 - 5.50 X10*6/uL [facility] Hemoglobin 13.7 12.0 - 16.0 g/dl [facility] Hematocrit 39.7 37.0 - 47.0 % [facility] Mean Corpuscular Volume 89.4 80.0 - 98.0 fL [facility] Mean Corpuscular Hemoglobin 30.9 27.0 - 33.0 pg [facility] Mean Corpuscular HGB Conc 34.5 31.0 - 35.0 g/dl [facility] Red Cell Distribution Width 11.7 11.0 - 16.0 % [facility] Platelet Count 189 160 - 400 X10*3/uL [facility] Mean Platelet Volume 11.7 9.4 - 12.3 fL [facility] Neutrophils Percent Auto 63.7 45 - 73 % [facility] Imm Gran Pct Auto 0.2 0.0 - 0.4 % [facility] Lymphocytes Percent Auto 24.4 20 - 40 % [facility] Monocytes Percent Auto 9.7 2 - 11 % [facility] Eosinophils Percent Auto 1.2 0 - 4 % [facility] Basophils Percent Auto 0.8 0 - 2 % [facility] NRBC Pct Auto 0.0 0.0 - 0.2 /100WBC [facility] Neutrophils Absolute Auto 3.2 2.0 - 8.3 x10*3/uL [facility] Imm Gran Abs Auto 0.01 0.00 - 0.03 X10*3/uL [facility] Lymphocytes Absolute Auto 1.2 1.2 - 4.9 X10*3/uL [facility] Monocytes Absolute Auto 0.5 0.1 - 1.2 X10*3/uL [facility] Eosinophils Absolute Auto 0.1 0.0 - 0.4 X10*3/uL [facility] Basophils Absolute Auto 0.0 0.0 - 0.2 X10*3/uL [facility] NRBC Abs Auto 0.000 0.0 - 0.012 X10*3/uL [facility] Blood Venous blood specimen / Unknown 04/17/2025 2:35 PM EST 04/17/2025 4:03 PM EST us Cydney Yusuf MD LAB BLOOD ORDERABLES Final Result Performing Organization Address [facility] Co de Phone Number [facility] [address] [place] [phone] * Hemoglobin A1c (04/17/2025 2:35 PM EST) Hemoglobin A1c 5.1 <6.0 % [facility] Comment:Hemoglobin A1C Refer ence Range Adults: 4.8 - 6.0 % Non diabetic: < 6.0 % Goal: < 7.0 %Additional Action Suggested: > 8.0 %Note: Hemoglobin A1c results are invalid for patients with abnormal amounts of HbF. Blood transfusions may impact the HbA1c concentration in the patient sample. Estimated Average Glucose 100 mg/dL [facility] Comment:eAG = Estimated ave rage glucose which is %A1C expressed asaverage glucose, using the formula of the E1Y-HlgcnpyZvxbsqz Glucose study (ADAG), Diabetes Care, Vol.31,#8,Dec. 2007 Blood Venous blood specimen / Unknown 04/17/2025 2:35 PM EST 04/17/2025 4:03 PM EST us Cydney Yusuf MD LAB BLOOD ORDERABLES Final Result Performing Organization Address [facility] Co de Phone Number [facility] [address] [place] [phone] * (ABNORMAL) Bacterial Vaginosis (02/12/2025 4:11 PM EDT) TRICHOMONAS VAGINALIS DETECTION BY PCR NOT DETECTED Not Detect [facility] BACTERIAL VAGINOSIS DETECTION BY PCR NEGATIVE Negative [facility] Comment:The BV organism targ ets of the Xpert Xpress MVP test can becommensal in women; Xpert Xpress MVP positive results forbacterial vaginosis should be considered in conjunction withother clinical and patient information to determine thedisease status. Organisms that are not detected by the XpertXpress MVP test have also been reported to be associatedwith BV and aerobic vaginitis.The Xpert Xpress MVP test performance has not been evaluatedin patients under the age of 14. YOSELIN GROUP DETECTION BY PCR DETECTED(A) Not Detect [facility] Yoselin glab krusei PCR NOT DETECTED Not Detect [facility] 02/12/2025 4:11 PM EDT 02/13/2025 8:53 AM EDT Generic External Data Provider LAB MICROBIOLOGY - GENERAL ORDERABLES Final Result [facility] [address] [place] [phone] * Chlamydia/N. Gonorrhoeae RNA, TMA, Urogenitial (02/12/2025 4:11 PM EDT) Pathologist [facility] CT PCR NOT DETECTED Not Detect. [facility] Comment:A not detected test result does not exclude the possibilityof infection because test results can be affected byimproper specimen collection, concurrent antibiotic therapy,or the number of organisms in the specimen which may bebelow the sensitivity of the test. As with many diagnostictests, results from the Xpert CT/NG assay should beinterpreted in conjunction with other laboratory andclinical data available to the clinician.Xpert CT/NG performance has not been evaluated in patientsless than 14 years of age. The assay should not be used forthe evaluationof suspected sexual abuse or for other medico-legalindications. Additional testing is recommended in anycircumstance when false positive or false negative resultscould lead to adverse medical, social or psychologicalconsequences. NG PCR NOT DETECTED Not Detect. [facility] Comment:A not detected test result does not exclude the possibilityof infection because test results can be affected byimproper specimen collection, concurrent antibiotic therapy,or the number of organisms in the specimen which may bebelow the sensitivity of the test. As with many diagnostictests, results from the Xpert CT/NG assay should beinterpreted in conjunction with other laboratory andclinical data available to the clinician.Xpert CT/NG performance has not been evaluated in patientsless than 14 years of age. The assay should not be used forthe evaluationof suspected sexual abuse or for other medico-legalindications. Additional testing is recommended in anycircumstance when false positive or false negative resultscould lead to adverse medical, social or psychologicalconsequences. 02/12/2025 4:11 PM EDT 02/13/2025 9:55 AM EDT us Generic External Data Provider LAB MICROBIOLOGY - GENERAL ORDERABLES Final Result Performing Organization Address City/State/[facility] Co de Phone Number [facility] [address] [place] [phone] * BI Mammogram Screening Tomosynthesis Bilateral (06/02/2024 1:12 PM EST) Anatomical Region Laterality Modality Breast Bilateral Mammography 06/02/2024 1:12 PM EST Narrative 06/10/2024 12:06 PM EST [address] [place] [address] Mammography Report Signed Patient: Nancy Hernandez MR#: [id number] : 1980 Acct:[id number] Age/Sex: 43 / F ADM Date: 06/02/24 Loc: HO.MAMMO Attending Dr: Cydney Yusuf MD Ordering Physician: Cydney Coy MD Results: 1Negative Date of Service: 06/02/24 Follow Up: 1 Year From Orig inal Mammogram Procedure(s): MM tomosynthesis screening BI Accession Number(s): [id number] cc: Cydney Coy MD EXAMINATION: MM SCREENING [...] by: Claudia Gimenez DO 06/10/2024 12:03 PM [facility] Dictated By: Claudia Gimenez DO Signed By: <Electronically signed by Claudia Gimenez DO in OV> 06/10/24 1203 DD/ 1312 TD/TT: 06/02/24 1326 Horse Identifier: Procedure Note Donotuseinterpreter, Image - [facility]/10/2024 [facility] [address] [place] [address] Mammography Report Signed Patient: Ronal Hernandez#: [id number] : 1980Acct:[id number] Age/Sex: 43 / FADM Date: 06/02/24 Loc: HO.MAMMO Attending Dr: Cydney Yusuf MD Ordering Physician: Cydney Coy MDResults: 1Negative Date of Service: 06/02/24Follow Up: 1 Year From Orig inal Mammogram Procedure(s): MM tomosynthesis screening BI Accession Number(s): [id number] cc: Cydney Coy MD EXAMINATION: MM SCREENING [...] 06/10/24 1203 DD/ 1312 TD/TT: 06/02/24 1326 Horse Identifier: Cydney Yusuf MD IMG BI PROCEDURES Fin al Result * HPV mRNA E6/E7 w/Reflex to HPV Genotypes 16, 18/45 (05/24/2023 9:53 AM EST) HPV nRNA E6/E7 Not Detected Not Detected [facility] Comment:Methodology: Transcr iption-Mediated AmplificationThis assay detects E6/E7 viral messenger RNA (mRNA) from 14high-risk HPV types (16,18,31,33,35,39,45,51,52,56,58,59,66,68).Cervical sources are required for HPV testing.If a vaginal source from a patient who has had atotal hysterectomy with removal of cervix wassubmitted, please contact the testing laboratoryfor alternative testing options.For additional information, please refer tohttp://education.Vir2us/faq/JXT031x6(This link if provided for information/educational purposes only.)THIS TEST WAS PERFORMED AT:[facility] [place] [phone] TSANG MD HPV mRNA E6/E7 TNP [facility] HPV 16 RNA TNP [facility] HPV 18/45 RNA TNP [facility] 05/24/2023 9:53 AM EST 05/25/2023 11:20 AM EST us Shirley Kingsley [facility] CYTOLOGY ORDERABLES F inal Result [facility] [address] [place] [phone] * Pap Smear (05/24/2023 9:53 AM EST) Swab Cervix uteri structure / Unknown 05/24/2023 9:53 AM EST 05/25/2023 11:20 AM EST Narrative [facility] - 06/04/2023 11:19 AM EST ----- ------- Name: Lorena GuadalupeonNancy Age/Sex: 42/F : 1980 Unit#: [id number] Yuridia Dr: Re05/24/23 Status: PRE REF Location: [facility] Disch: ----- ------- SPEC : [id number] RECD: 05/25/23 STATUS: CAROLYNE OLIVAREZ NUM: [id number] ALEJANDRA: 05/24/23-[address]: SHIRLEY KINGSLEY CNM ENTERED: 05/25/23-1213 SP TYPE: Pap Smr OTHR : ORDERED: Pap Smear Interpretation Satisfactory for evaluation. Negative for intraepithelial lesion or malignancy. HPV mRNA E6/E7: NOT DETECTED This assay detects E6/E7 viral messenger RNA (mRNA) from 14 high-risk HPV types (16, 18, 31, 33, 35, 39, 45, 51, 52, 56, 58, 59, 66, 68) HPV testing performed by [facility], [place], [place]. See reference laboratory portion of the EMR for entire report. Clinical Information LMP: 04/22/2023 Previous PAP test: Unknown date/findings Material Received ThinPrep-Cervical ----- ------- Signed (signature on file) Angy Lynn 06/04/23 1119 ----- ------- END OF REPORT us Shirley Kingsley CNM LAB CYTOLOGY ORDERABLES F inal Result [facility] [address] [place] [phone] * Hepatitis C Antibody with Reflex to HCV RNA,PCR w/Reflex to Genotype, LiPA (11/07/2022 12:06 PM EDT) Hepatitis C Antibody NON-REACT MUNDO NON-REACT MUNDO [facility] [place] [facility] Comment: HCV antibody was non-reactive. There is no laboratory evidence of HCV infection. In most cases, no further action is required. However, if recent HCV exposure is suspected, a test for HCV RNA (test code 11716) is suggested. For additional information, please refer to http://Webjam.Clean Engines/faq/QFJ781 (This link is being provided for informational/ educational purposes only.) 11/07/2022 12:0 6 PM EDT 11/07/2022 12:06 PM EDT us Serenity Story DO LAB BLOOD ORDERABLES Final R esult [facility] [address], [place] [phone] [facility] [place] [facility] [address] [place] [phone] * HIV-1/2 Antigen and Antibodies, Fourth Generation, with Reflexes (11/07/2022 12:06 PM EDT) HIV Antigen/Antibody, 4th Generation NON-REAC TIVE NON-REAC TIVE [facility] [place] [facility] Comment: HIV-1 antigen and HIV-1/HIV-2 antibodies were [...] purpose. For additional information please refer to http://Webjam.[place].VoxPopMe/faq/ZVQ374 (This link is being provided for informational/ educational purposes only.) The performance of this assay has not been clinically validated in patients less than 2 years old. Blood Venous blood specimen / Unknown 11/07/2022 12:06 PM EDT 11/07/2022 12:06 PM EDT Serenity Porsha DO LAB BLOOD ORDERABLES Final R esult Performing Organization Address City/[facility]/ZIP Co de Phone Number NEO Valentin [address], [facility] [phone] [facility] [place] [facility] [address] [place] [phone] * (ABNORMAL) Lipid Panel, Standard (11/07/2022 12:06 PM EDT) Cholesterol, Total 138 <200 mg/dL [facility] [place] [facility] HDL Cholesterol 48(L) > OR = 50 mg/dL [facility] [place] [facility] Triglycerides 112 <150 mg/dL [facility] [place] [facility] LDL Cholesterol 70 mg/dL (calc) [facility] [place] [facility] Comment: Reference range: <100 Desirable range <100 mg/dL for primary prevention; <70 mg/dL for patients with CHD or diabetic patients with > or = 2 CHD risk factors. LDL-C is now calculated using the Santhosh-Brody calculation, which is a validated novel method providing better accuracy than the Friedewald equation in the estimation of LDL-C. Santhosh SS et al. FELICITAS. 2013;310(19): 2278-8515 (http://education.Clean Engines/faq/DVR201) Chol/HDLC Ratio 2.9 <5.0 (calc) [facility] [place] [facility] Non-HDL Cholesterol 90 <130 mg/dL (calc) [facility] [place] [facility] Comment: For patients with diabetes plus 1 major ASCVD risk factor, treating to a non-HDL-C goal of <100 mg/dL (LDL-C of <70 mg/dL) is considered a therapeutic option. Blood Venous blood specimen / Unknown 11/07/2022 12:06 PM EDT 11/07/2022 12:06 PM EDT Serenity Porsha DO LAB BLOOD ORDERABLES Final R esult Performing Organization Address City/[facility]/ZIP Co de Phone Number NEO Valentin [address], [place] [phone] [facility] [place] [facility] [address] [place] [phone] from Last 3 Months or Most Recently Relevant to Health Maintenance [place] [address] [address] [address] [employer] Care Teams Electrical Systems Drafter Relationship Specialty Start Date End Date Cydney Coy MD [address] [place] [phone] PCP - General Family Medicine 04/29/19
--- OUTSIDE RECORDS SUMMARY | 2025-04-17 18:38 | XMS_ITS | Encounter Summary ---
Author Organization [employer] Address [address] [place] [address] 7 [place] [address] Care Team Providers Care Account Maintenance Representative Name Role Phone Cydney Coy MD Primary Care Provide r Reason for Visit * Reason Onset Date Comments chart prep 04/16/2025 Encounter Details Date Type Department Care Team ([facility] st Contact Info) Description 04/16/2025 Telephone [facility] [address] [place], [place] [phone] Cydney Coy MD [address] [place] [phone] chart prep Social History Tobacco Use Types Packs/Day Years [...] AM EDT documented as of this encounter Miscellaneous Notes * Telephone Encounter - Anai Zhang [place] - 04/16/2025 3:11 PM EST Chart Prep Labs: done Images: done Referrals: complete Vaccines due: Covid, Flu, Tdap, Hep B, and HPV Screenings: mammogram Overdue care gaps: PHQ-9, FABRICE-7, and Disability screen documented in this encounter Plan of Treatment Upcoming Encounters Date Type Department Care Team (Late st Contact Info) Description 06/02/2025 2:00 PM EST Telemedicine [facility] [address] [place] [address] Cydney Coy MD [address] [place] [phone] documented as of this encounter Visit Diagnoses Not on filedocumented in this encounter Additional Health Concerns Assessment Noted Time PHQ-9 Depression Total Score: 2 01/30/20 25 3:42 PM EDT documented as of this encounter Care Teams Account Maintenance Representative Relationship Specialty Start Date End Date Cydney Coy MD [address] [place] [phone] PCP - General Family Medicine 04/29/19 documented as of this encounter
--- OUTSIDE RECORDS SUMMARY | 2025-04-17 18:38 | XMS_ITS | Encounter Summary ---
Author Organization [employer] Address [address] [facility] [address]t [place] [address] Care Team Providers Care Ent Physician Name Role Phone Cydney Coy MD Primary Care Provide r Encounter Details Date Type Department Care Team (Latest Contact Info) Description 04/17/2025 Travel Social History Tobacco Use Types Packs/Day Years [...] AM EDT documented as of this encounter Functional Status * Over the past 2 weeks, how often have you been bothered by any of the following problems? Question Answer Date of Assessment Author Patient Health Questionnaire-2 Score 2 09/2024 2:30 PM Ade Solano MA * Little interest or pleasure in doing things Answer Date of Assessment Author Not at all 04/17/2025 2:30 PM Bobby Solano ra, [place] * Feeling down, depressed, or hopeless Answer Date of Assessment Author More than half the days 04/17/2025 2:30 PM Ade Ferrari [place] * Trouble falling or staying asleep, or sleeping too much Answer Date of Assessment Author More than half the days 04/17/2025 2:30 PM Ade Ferrari [place] * Feeling tired or having little energy Answer Date of Assessment Author Nearly every day 04/17/2025 2:30 PM Donna Solano MA * Poor appetite or overeating Answer Date of Assessment Author Nearly every day 04/17/2025 2:30 PM Donna Solano [place] * Feeling bad about yourself - or that you are a failure or have let yourself or your family down Answer Date of Assessment Author Not at all 04/17/2025 2:30 PM Bobby Solano ra, [place] * Trouble concentrating on things, such as reading the newspaper or watching television Answer Date of Assessment Author More than half the days 04/17/2025 2:30 PM Ade Ferrari MA * Moving or speaking so slowly [...] or on edge 2 09/2024 2:30 PM EST Ade Villagomez MA Not being able to stop or [...] Solano MA documented as of this encounter Plan of Treatment Upcoming Encounters Date Type Department Care Team (Late st Contact Info) Description 06/02/2025 2:00 PM EST Telemedicine [facility] [address] [place] [address] Cydney Coy MD [address] [place] [address] documented as of this encounter Visit Diagnoses Not on filedocumented in this encounter Additional Health Concerns Assessment Noted Time PHQ-9 Depression Total Score: 12 025 2:30 PM EST documented as of this encounter Care Teams Ent Physician Relationship Specialty Start Date End Date Cydney Coy MD [address] [place] [phone] PCP - General Family Medicine 04/29/19 documented as of this encounter
--- OUTSIDE RECORDS SUMMARY | 2025-04-17 18:38 | XMS_ITS | Encounter Summary ---
Author Organization [employer] Address [address] [place] [address] 7 [place] [address] Care Team Providers Care Environmental Manager Name Role Phone Cydney Coy MD Primary Care Provide r Reason for Visit * Reason Comments Med Refill Encounter Details Date Type Department Care Team (Late Contact Info) Description 07/21/[address] [facility] [address] [place] [address] [phone] Name, MD Tiburcio [address] [place] [phone] Vaginal discharge; Acute vaginitis Social History Tobacco [...] Encounters Date Type Department Care Team (Late Contact Info) Description 06/02/2025 2:00 PM EST Telemedicine [facility] [address] [place] [address] [phone] Cydney Coy MD [address] [place], [place] [phone] documented as of this encounter Visit Diagnoses Diagnosis Vaginal discharge Leukorrhea, not specified as infective Acute vaginitis Unspecified vaginitis and vulvovaginitis documented in this encounter Care Teams Environmental Manager Relationship Specialty Start Date End Date Cydney Coy MD [address] [place] [phone] PCP - General Family Medicine 04/29/19 documented as of this encounter
[2025-04-17 19:04] LABS: Alanine Aminotransferase 18 U/L (0-31); Albumin Level 4.3 g/dL (3.5-5.0); Alkaline Phosphatase 70 U/L (39-117); Anion Gap 6 (12-20); Aspartate Amino Transferase 19 U/L (5-31); Blood Urea Nitrogen 12 mg/dL (9-16); Calcium 8.7 mg/dL (8.4-10.2); Carbon Dioxide 26 mmol/L (22-29); Chloride 112 mmol/L (96-108); Cholesterol 158 mg/dL (<200); Estimated Glomerular Filt Rate > 60; HDL Cholesterol 61 mg/dL (>40); Iron 94 mcg/dL (30-160); Percent Iron Saturation 35 % (15-50); Potassium 3.6 mmol/L (3.3-5.1); Sodium 140 mmol/L (135-145); Total Iron Binding Capacity 269 mcg/dL (228-428); Total Protein 6.9 g/dL (6.5-8.0); Triglycerides 79 mg/dL (<150); Unsaturated Iron Binding 175 ug/dL
[2025-04-17 20:49] LABS: Free T4 (Free Thyroxine) 0.93 ng/dL (0.71-1.85)
[2025-04-18 00:04] LABS: Folate 9.5 ng/mL (> or = 4.0); Vitamin B12 511 pg/mL (200-900)
[2025-04-18 08:19] LABS: HIV Num 1 0.07 S/CO (0.00-0.99); ~HepC Num1 0.12 S/CO (0.00-0.79); ~Hepatitis C Antibody Nonreactive (Nonreactive)
== END 2025-04-17 14:32 | disposition home or self-care (01) ==
LOC: HO.HHCL 14:31
PROVIDERS: PCP Internal Medicine; Visit Provider Internal Medicine
DX: Z13.6 Encounter for screening for cardiovascular disorders (principal); Z13.1 Encounter for screening for diabetes mellitus; Z11.59 Encounter for screening for other viral diseases; Z11.4 Encounter for screening for human immunodeficiency virus [HIV]; R53.83 Other fatigue
CPT/HCPCS: 36415; 80053; 80061; 82306; 82607; 82746; 83036; 83540; 84439; 84443; 85025; 86803; 87389